=== PATIENT | male | born 2000 | race Caucasian/White ===

== ENCOUNTER 2022-08-31 14:36 | Inpatient (IN) | payer MEDICAID, SELFPAY ==
[2022-08-31 14:41] VITALS: BP 120/71; PULSE 96; RESP 14; TEMP 37.1; O2SAT 100; BMI 16.3
--- NOTE | 2022-08-31 15:41 | EDS_ITS ---
HPI History of Present Illness Chief Complaint: General Illness Narrative Narrative: History and physical is limited secondary to patient's past medical history of intellectual disability and ADHD. Reportedly, patient presents with his father and great aunt from radiology for abnormal swallowing study. His father relates history that he was seen by family practice because Mata's speech was progressively worsened over the last 4 months since his mother in February. He was eating less. There was an incident where Paula was eating, and choked, and it also takes him a long time to complete a meal. He has also been undergoing speech therapy. Was also noted and his medical chart that he has a lot of saliva production and his speech is unintelligible until he clears his mouth and throat. They deny that he has had any nausea or vomiting but over the last at least 6 months patient has significant weight loss. His father states he thought it was because the patient was grieving at the loss of his mother. Per RN, patient was brought from radiology because of an abnormal swallow study and that the patient needs an emergent G-tube. According to radiology they had spoken with Dr. Avila who is unable to see him in the office so they were told to present to the emergency department for surgical consultation. [facility] Medical History ADD (attention deficit disorder) Home Medications NK 08/31/22 [History Last Taken Unknown] Allergy/AdvReac Type Severity Reaction Status Date / Time No Known Allergies Allergy Verified 08/31/22 14:38 Family History Mother ALS (amyotrophic lateral sclerosis) Grandmother ALS (amyotrophic lateral sclerosis) Social History Smoking Status: Never smoker ROS ROS ED ROS Narrative Unable to obtain from patient secondary to IDD. Constitutional: No fever, no chills. Positive weight loss. HEENT: No sore throat. No neck pain. No loss of vision. No rhinorrhea. Cardiovascular: No chest pain. No palpitations. No pedal edema. Respiratory: No cough, no shortness of breath. Abdominal: No abdominal pain. No nausea. No vomiting. Genitourinary: No dysuria. No hematuria. Musculoskeletal: No myalgias. No arthralgias. Neurologic: No headaches. No dizziness. No lightheadedness. Skin: No rash. No change in color. Psychiatric: No depression. No anxiety. EXAM Physical Exam Const Vital Signs: 08/31/22 14:41 08/31/22 16:11 08/31/22 18:37 Temperature 98.8 F Temperature Source Temporal Pulse Rate 96 68 Respiratory Rate 14 15 Respiratory Effort Normal Non-Labored Respiratory Pattern Normal Blood Pressure 120/71 110/61 Blood Pressure Mean 87 77 Pulse Ox 100 99 Oxygen Delivery Method Room Air Room Air 08/31/22 20:00 Temperature Temperature Source Pulse Rate 68 Respiratory Rate 16 Respiratory Effort Respiratory Pattern Blood Pressure Blood Pressure Mean Pulse Ox 98 Oxygen Delivery Method Room Air MDM MDM MDM Narrative Medical decision making narrative: I reviewed his EMR. In further discussion with the patient's father and great aunt, he was at speech therapy today and he did have a swallowing study performed. They state that he has been aspirating, they were told that he is not to eat or drink anything and he needs to come to the emergency department as this PEG tube should be placed more emergently. CBC obtained which shows normal white count and normal hemoglobin of 16.4. There was a delay in CMP results as his specimen was hemolyzed twice. On the third attempt, it has returned and he has normal BUN and creatinine. Glucose of 79. He was made NPO. I discussed patient with Dr. Walter for observation for PEG tube placement tomorrow. Disposition is assigned to observation. Patient is in stable condition. Lab Data Attestation: I reviewed the patient's lab results. Labs: Laboratory Results - last 24 hr 08/31/22 08/31/22 08/31/22 16:24 16:24 17:23 WBC 8.3 RBC 5.57 Hgb 16.4 Hct 48.2 MCV 86.5 MCH 29.4 MCHC 34.0 RDW Std Deviation 40.8 RDW Coeff of [place] 13.1 Plt Count 373 MPV 11.5 Immature Gran % (Auto) 0.200 Neut % (Auto) 56.5 Lymph % (Auto) 32.1 [place] % (Auto) 9.0 Eos % (Auto) 1.8 Baso % (Auto) 0.4 Absolute Neuts (auto) 4.7 Absolute Lymphs (auto) 2.65 Nucleated RBC % 0 Sodium Cancelled Cancelled Potassium Cancelled Cancelled Chloride Cancelled Cancelled Carbon Dioxide Cancelled Cancelled Anion Gap Cancelled Cancelled BUN Cancelled Cancelled Creatinine Cancelled Cancelled Estim Creat Clear Calc Cancelled Cancelled Est GFR (MDRD) Af Amer Cancelled Cancelled Est GFR (MDRD) Non-Af Cancelled Cancelled BUN/Creatinine Ratio Cancelled Cancelled Glucose Cancelled Cancelled Calcium Cancelled Cancelled Total Bilirubin Cancelled Cancelled AST Cancelled Cancelled ALT Cancelled Cancelled Alkaline Phosphatase Cancelled Cancelled Total Protein Cancelled Cancelled Albumin Cancelled Cancelled Globulin Cancelled Cancelled Albumin/Globulin Ratio Cancelled Cancelled 08/31/22 19:20 WBC RBC Hgb Hct MCV MCH MCHC RDW Std Deviation RDW Coeff of [place] Plt Count MPV Immature Gran % (Auto) Neut % (Auto) Lymph % (Auto) [place] % (Auto) Eos % (Auto) Baso % (Auto) Absolute Neuts (auto) Absolute Lymphs (auto) Nucleated RBC % Sodium 138 Potassium 4.4 Chloride 101 Carbon Dioxide 30.0 Anion Gap 7 BUN 15 Creatinine 0.67 L Estim Creat Clear Calc 128.63 Est GFR (MDRD) Af Amer 193 Est GFR (MDRD) Non-Af 159 BUN/Creatinine Ratio 22.4 H Glucose 79 Calcium 9.7 Total Bilirubin 0.80 AST 13 L ALT 26 Alkaline Phosphatase 99 Total Protein 7.7 Albumin 3.8 Globulin 3.9 Albumin/Globulin Ratio 1.0 Discharge Plan Dx/Rx/DC Orders Clinical Impression: Dysphagia, Aspiration into airway, Adult failure to thrive Disposition Disposition: Acute Care Hospital [facility] Discharge Date/Time: 08/31/22 21:25
--- NOTE | 2022-08-31 16:17 | NURSING ---
DR DOMINIC YUNG
[2022-08-31 16:51] LABS: Absolute Lymphocyte Count 2.65 X10^3/uL (0.83-4.51); Absolute Neutrophil Count 4.7 X10^3/uL (2.0-7.7); Basophil# 0.03 X10^3/uL; Basophil% 0.4 % (0-1); Eosinophil# 0.15 X10^3/uL; Eosinophils% 1.8 % (0-5); Hematocrit 48.2 % (40-54); Hemoglobin 16.4 g/dL (13.0-16.5); Lymphocyte # 2.65 X10^3/ul (0.83-4.51); Lymphocyte % 32.1 % (19-41); Mean Corpuscular Hgb 29.4 pg (27.0-32.0); Mean Corpuscular Volume 86.5 fL (80-94); Mean Platelet Vol. 11.5 fl (6.2-12.0); Monocyte# 0.74 X10^3/uL; NRBC Flagged by Analyzer 0 % (0-5); Neutrophil # 4.66 X10^3/uL (2.7-7.7); Neutrophil % 56.5 % (47-70); Platelet Count 373 K/mm3 (150-450); RBC Distribution Width CV 13.1 % (11.6-14.6); RBC Distribution Width SD 40.8 fl (35.1-43.9); Red Blood Count 5.57 M/mm3 (4.6-6.2); White Blood Count 8.3 K/mm3 (4.4-11.0)
--- NOTE | 2022-08-31 17:04 | NURSING ---
CMP, GREEN TOP, NEEDS REDRAWN. PER LAB
[2022-08-31 18:37] VITALS: BP 110/61; PULSE 68; RESP 15; O2SAT 99
[2022-08-31 19:45] LABS: AST(SGOT) 13 U/L (15-37); Alanine Aminotransfer ALT/SGPT 26 U/L (16-61); Albumin, Serum 3.8 g/dL (3.2-5.0); Alkaline Phosphatase 99 U/L (45-117); Anion Gap 7 (5-15); BUN 15 mg/dL (7-18); BUN/Creat Ratio 22.4 RATIO (10-20); Calcium,Total 9.7 mg/dL (8.5-10.1); Chloride 101 mmol/L (98-107); Creatinine, Serum 0.67 mg/dL (0.70-1.30); EST Glomerular Filtration Rate 159 mL/min (>60); Est Glom Filt Rate - Afr Amer 193 mL/min (>60); Estimated Creatinine Clearance 128.63 ml/min; Globulin 3.9 g/dL (2.2-4.2); Glucose 79 mg/dL (74-106); Potassium 4.4 mmol/L (3.5-5.1); Protein, Total 7.7 g/dL (6.4-8.2); Sodium Level 138 mmol/L (136-145)
[2022-08-31 20:00] VITALS: PULSE 68; RESP 16; O2SAT 98
[2022-08-31 20:27] VITALS: BP 110/61; PULSE 68; RESP 15; TEMP 37.1; O2SAT 99
[2022-08-31 21:28] VITALS: BMI 15.7
[2022-08-31 21:42] VITALS: BP 118/79; PULSE 77; RESP 14; TEMP 36.4; O2SAT 100
[2022-08-31] MEDS: Lactated Ringers 1,000 ML 130 ML IV (22:05)
[2022-08-31] MEDS: 0.9% Saline Lock 10 ML Syringe IV (22:06)
--- NOTE | 2022-08-31 23:12 | NURSING ---
Dr Kern contacted due to no AM labs ordered for tomorrow. per no labs orders needed, due to being within normal limits today, physican wants consent placed on chart she will sign in AM, update provided that pt aunt is at bedside and states, she's a nurse she will be able to assist with pt care.
[2022-09-01] VITALS (14 sets, daily range): BP systolic 87–134; BP diastolic 52–77; PULSE 80–97; RESP 16–20; TEMP 36.2–36.7; O2SAT 92–100; BMI 15.7
--- NOTE | 2022-09-01 00:41 | NURSING ---
IV attempts by 2 RN unsuccessful 5 times. pt is refusing farther attempts at this time. Pt is noted to being very anxious and tense with IV placement.
[2022-09-01] MEDS: Lactated Ringers 1,000 ML 130 ML IV ×2 (05:01→11:38)
--- NOTE | 2022-09-01 08:38 | PCM.HP.STD ---
HPI - General General Date of Admission: 08/31/22 HPI Narrative SHONDA ESPARZA, is a 21 M who presented initially for a swallowing eval due to weight loss as patient's BMI is 15. Patient's mom about 6 months ago. Patient's swallow eval recommended a PEG tube as he was having aspiration. Patient does have past medical history for intellectual disability, he is currently accompanied by his great aunt who is a former nurse. Patient's aunt states that patient did not appear to be aspirating previous to the swallow eval. Patient's labs also showed normal albumin. However patient has been losing weight pretty much since about 6 months ago. Patient denies any abdominal pain. Patient has not even swallowing his saliva at some points. [facility] Medical History (Updated 09/01/22 @ 08:[address] Kimberly Montesinos MD) ADD (attention deficit disorder) Intellectual delay Home Medications NK 08/31/22 [History Last Taken Unknown] Allergy/AdvReac Type Severity Reaction Status Date / Time No Known Allergies Allergy Verified 08/31/22 14:38 Family History Mother ALS (amyotrophic lateral sclerosis) Grandmother ALS (amyotrophic lateral sclerosis) Social History Smoking Status: Never smoker ROS Review of Systems ROS Unobtainable: due to mental condition Gastrointestinal Gastrointestinal: Denies abdominal pain Vital Signs Vital Signs Vital Signs: 08/31/22 14:41 08/31/22 16:11 08/31/22 18:37 Temperature 98.8 F Temperature Source Temporal Pulse Rate 96 68 Pulse Strength Respiratory Rate 14 15 Respiratory Effort Normal Non-Labored Respiratory Depth Respiratory Pattern Normal Blood Pressure 120/71 110/61 Blood Pressure Mean 87 77 Blood Pressure Source Blood Pressure Position Blood Pressure Location Pulse Ox 100 99 Oxygen Delivery Method Room Air Room Air 08/31/22 20:27 08/31/22 20:00 08/31/22 21:42 Temperature 98.8 F 97.6 F L Temperature Source Temporal Oral Pulse Rate 68 68 77 Pulse Strength Respiratory Rate 15 16 14 Respiratory Effort Respiratory Depth Respiratory Pattern Blood Pressure 110/61 118/79 Blood Pressure Mean 77 92 Blood Pressure Source Monitor Blood Pressure Position Semi-Fowlers Blood Pressure Location Right Arm Pulse Ox 99 98 100 Oxygen Delivery Method Room Air Room Air Room Air 08/31/22 22:00 08/31/22 22:00 08/31/22 21:42 Temperature 97.6 F L Temperature Source Oral Pulse Rate 77 Pulse Strength Normal (2+) Respiratory Rate 14 Respiratory Effort Normal Respiratory Depth Normal Respiratory Pattern Normal Blood Pressure 118/79 Blood Pressure Mean 92 Blood Pressure Source Blood Pressure Position Blood Pressure Location Pulse Ox 100 Oxygen Delivery Method Room Air Room Air 09/01/22 03:35 09/01/22 03:38 09/01/22 06:30 Temperature 98.0 F 97.4 F L Temperature Source Axillary Axillary Pulse Rate 90 91 Pulse Strength Respiratory Rate 18 18 Respiratory Effort Normal Respiratory Depth Normal Respiratory Pattern Normal Blood Pressure 134/77 H 116/77 Blood Pressure Mean 96 90 Blood Pressure Source Monitor Monitor Blood Pressure Position Supine Supine Blood Pressure Location Right Arm Right Arm Pulse Ox 96 100 Oxygen Delivery Method Room Air Room Air Room Air 09/01/22 02:34 Temperature 97.4 F L Temperature Source Axillary Pulse Rate 91 Pulse Strength Respiratory Rate 18 Respiratory Effort Respiratory Depth Respiratory Pattern Blood Pressure 116/77 Blood Pressure Mean 90 Blood Pressure Source Monitor Blood Pressure Position Supine Blood Pressure Location Right Arm Pulse Ox 100 Oxygen Delivery Method Room Air Weight Weight: 112 lb 14.027 oz Body Mass Index (BMI) 15.7 Physical Exam Const alert, oriented x3 and no apparent distress Nutritional Appearance: underweight HEENT normocephalic and head/scalp atraumatic Resp normal respiratory effort Cardio regular rate GI soft to palpation and non-tender; Negative for non-distended Palpation: Negative for guarding Extremity no clubbing, cyanosis or edema Results Lab / Micro Data Result Diagrams: 08/31/22 16:24 08/31/22 19:20 Labs: Laboratory Results - last 24 hr 08/31/22 16:24: WBC 8.3, RBC 5.57, Hgb 16.4, Hct 48.2, MCV 86.5, MCH 29.4, MCHC 34.0, RDW Std Deviation 40.8, RDW Coeff of [place] 13.1, Plt Count 373, MPV 11.5, Immature Gran % (Auto) 0.200, Neut % (Auto) 56.5, Lymph % (Auto) 32.1, [place] % (Auto) 9.0, Eos % (Auto) 1.8, Baso % (Auto) 0.4, Absolute Neuts (auto) 4.7, Absolute Lymphs (auto) 2.65, Nucleated RBC % 0 08/31/22 16:24: Sodium Cancelled, Potassium Cancelled, Chloride Cancelled, Carbon Dioxide Cancelled, Anion Gap Cancelled, BUN Cancelled, Creatinine Cancelled, Estim Creat Clear Calc Cancelled, Est GFR (MDRD) Af Amer Cancelled, Est GFR (MDRD) Non-Af Cancelled, BUN/Creatinine Ratio Cancelled, Glucose Cancelled, Calcium Cancelled, Total Bilirubin Cancelled, AST Cancelled, ALT Cancelled, Alkaline Phosphatase Cancelled, Total Protein Cancelled, Albumin Cancelled, Globulin Cancelled, Albumin/Globulin Ratio Cancelled 08/31/22 17:23: Sodium Cancelled, Potassium Cancelled, Chloride Cancelled, Carbon Dioxide Cancelled, Anion Gap Cancelled, BUN Cancelled, Creatinine Cancelled, Estim Creat Clear Calc Cancelled, Est GFR (MDRD) Af Amer Cancelled, Est GFR (MDRD) Non-Af Cancelled, BUN/Creatinine Ratio Cancelled, Glucose Cancelled, Calcium Cancelled, Total Bilirubin Cancelled, AST Cancelled, ALT Cancelled, Alkaline Phosphatase Cancelled, Total Protein Cancelled, Albumin Cancelled, Globulin Cancelled, Albumin/Globulin Ratio Cancelled 08/31/22 19:20: Sodium 138, Potassium 4.4, Chloride 101, Carbon Dioxide 30.0, Anion Gap 7, BUN 15, Creatinine 0.67 L, Estim Creat Clear Calc 128.63, Est GFR (MDRD) Af Amer 193, Est GFR (MDRD) Non-Af 159, BUN/Creatinine Ratio 22.4 H, Glucose 79, Calcium 9.7, Total Bilirubin 0.80, AST 13 L, ALT 26, Alkaline Phosphatase 99, Total Protein 7.7, Albumin 3.8, Globulin 3.9, Albumin/Globulin Ratio 1.0 Assessment & Plan Assessment/Plan (1) Dysphagia: (2) Aspiration into airway: (3) Adult failure to thrive: (4) Body mass index less than 16.5: PLAN: Plan Currently n.p.o. with IV fluids. Nutritional help with patient's tube feeds. I have discussed the above with the patient and his great aunt who is in the room. I have offered the patient esophagogastroduodenoscopy with PEG placement. I have explained the risks/benefits of the procedure and described the procedure. I have discussed the risks with the patient, including but not limited to: infection, bleeding, perforation of the GI tract requiring emergency surgery, inability to complete the procedure, injury to any internal organs, complications of anesthesia, etc. - the patient understands and agrees to proceed. Also discussed the importance of keeping the tube in place for at least 2 weeks to develop a good track as it could be emergency surgery if unable to replace if he gets pulled out. I have answered all the patient's/family's questions to the patient's/family's satisfaction and the family/patient has no further questions. Kimberly Montesinos M.D. Pager: [phone] [facility] [address] [place] [address] [address] [place] [address] Office: [phone]
--- NOTE | 2022-09-01 10:21 | CASEMGMT ---
RN CM in to discuss discharge needs with parents at bedside. RN CM explained process for setting up tube feeds. Parents agreeable to [facility] for tube feeds. RN CM updated insurance instructor Danae regarding DME choice. CM will continue to follow this patient and plan for a safe discharge.
--- NOTE | 2022-09-01 13:45 | IMM_PTH ---
PATIENT: SHONDA ESPARZA LOC: [facility]3 U#:[id number] AGE/SX: 21/M ROOM: [facility] [place] RE09/02/[address]: Dr. Kimberly Montesinos MD : 2000 BED: 1 DIS: 09/04/2022 SPEC #: [id number] RECD: 09/02/22 13:59 STATUS: AVINASH REQ #: [id number] JUNIE: 09/01/22 13:[address]: Kimberly Montesinos DEPT: IMMUNOHISTOCHEMISTRY RECD BY: Seema Ny ENTERED: 09/02/22 14:00 SP TYPE: IMMUNO OTHR DR: Dr. Jesusita Akers, DO Tissues: Stomach, NOS Procedures: H Pylori (initial) PHYSICIAN & [place] [id number] SPECIMEN INFORMATION: Tissue Source: Antrum biopsy Clinical Info: Dysphagia, aspiration into airway Specimen Number: [id number] CPT code: 96345 METHODOLOGY: Deparaffinized sections of prefer/formalin-fixed tissue or PAP/DQ stained slides are incubated with monoclonal/polyclonal antibodies/oligonucleotide probes. Localization is made via biotin free immunoperoxidase method. Appropriate controls are performed and reacted as expected. Results on target cell population are indicated in the following table: RESULTS: ANTIBODY / CLONE RESULT H Pylori (polyclonal) negative These tests were developed and their performance characteristics determined by [facility]. They may not have been cleared or approved by the U.S. Food and Drug Administration. The FDA has determined that such clearance or approval is not necessary. The above immunohistochemical/dualISH markers are ordered and reviewed by the Pathologist. INTERPRETATION: Antrum, biopsy: Negative for Helicobacter pylori organisms. SJ:epdro 09/03/2022
--- NOTE | 2022-09-01 13:45 | EGD_PTH ---
PATIENT: SHONDA ESPARZA LOC: MS3 U#:[id number] AGE/SX: 21/M ROOM: FL310 RE09/02/[address]: Dr. Kimberly Montesinos MD : 2000 BED: 1 DIS: 09/04/2022 SPEC #: [id number] RECD: 09/01/22 14:39 STATUS: AVINASH RENiki #: [id number] JUNIE: 09/01/22 13:[address]: Kimberly Montesinos DEPT: SURGICAL PATHOLOGY RECD BY: Giana Simmons ENTERED: 09/02/22 12:27 SP TYPE: EGD BIOPSY OT DR: Dr. Jesusita Akers, DO Tissues: Gastric mucous membrane Procedures: Surgery Specimen Level IV HEADER OPERATION: EGD ([facility]), PEG tube PRE-OP DIAGNOSIS: Dysphagia, aspiration into airway TISSUE SUBMITTED: Antrum biopsy for H. pylori and histology MICROSCOPIC DIAGNOSIS Antrum, biopsy: Mild gastritis. See microscopic description and comment. SJ:pedro 09/03/2022 COMMENT The results of immunohistochemistry for Helicobacter pylori will be reported separately ([id number]). MICROSCOPIC DESCRIPTION Slides are reviewed. The specimen shows fragments of gastric mucosa with chronic inflammatory cell infiltrates in the lamina propria consisting of lymphocytes and plasma cells, consistent with mild chronic gastritis. GROSS DESCRIPTION Received in fixative is one container labeled with the patient's name and designated antrum biopsy. The specimen consists of one irregular fragment of light segovia soft tissue that measures 0.3 x 0.3 x 0.1 cm. The specimen is totally submitted in one cassette. / TYREE:pedro 09/02/2022 TC:3 CPT: 74392
[2022-09-01] MEDS: Cefazolin 2 GM in 0.9% Normal Saline 100 ML IV (13:50)
--- NOTE | 2022-09-01 13:50 | NS ---
Faxed enteral nutrition recommendations to [facility] (fax [phone]). Telephone call ([phone]) from [facility] apprenticeship training representative, [facility] will reach out to PCP Dr. Akers for signatures on enteral order and to complete Certificate of Medical Necessity. Kayden Pacheco MS, RDN, LD
--- NOTE | 2022-09-01 14:16 | OP.CCLET_ITS ---
09/01/2022 Jesusita Akers Re : Upper GI endoscopy procedure for Mata Portillo Dear Delphine This procedure was performed on Thursday, September 01, 2022. My impressions and recommendations are as follows: Impressions : - Z-line variable, 40 cm from the incisors. - Erythematous mucosa in the antrum. Biopsied. - Normal examined duodenum. - An externally removable PEG placement was successfully completed. Recommendations : - Please follow the post-PEG recommendations including: change dressing once per day, may use PEG today for meds and water and clean site with soap and water daily and dry thoroughly. - Await pathology results. - Use Protonix (pantoprazole) 40 mg PO daily. - Continue present medications. My findings are described in the full procedure note, which is enclosed. If I can be of further assistance, please feel free to contact me at Doctor phone number(s): , Work: . Sincerely, MD Kimberly Ojeda MD 09/01/2022 2:16:18 PM This report has been signed electronically.
--- NOTE | 2022-09-01 14:16 | OP.EGD_ITS ---
Patient Name: Mata Portillo Procedure Date: 09/01/2022 1:31 PM Date of : 2000 Age: 21 Procedure: Upper GI endoscopy Indications: Place PEG due to dysphagia Providers: Kimberly Montesinos MD Medicines: Monitored Anesthesia Care Patient Profile: This is a 21 year old male. Complications: No immediate complications. Procedure: Pre-Anesthesia Assessment: - Prior to the procedure, a History and Physical was performed, and patient medications and allergies were reviewed. The patient's tolerance of previous anesthesia was also reviewed. The risks and benefits of the procedure and the sedation options and risks were discussed with the patient. All questions were answered, and informed consent was obtained. Prior Anticoagulants: The patient has taken no previous anticoagulant or antiplatelet agents. ASA Grade Assessment: Per anesthesia. After reviewing the risks and benefits, the patient was deemed in satisfactory condition to undergo the procedure. After obtaining informed consent, the endoscope was passed under direct vision. Throughout the procedure, the patient's blood pressure, pulse, and oxygen saturations were monitored continuously. The gastroscope was introduced through the mouth, and advanced to the second part of duodenum. The upper GI endoscopy was accomplished without difficulty. The patient tolerated the procedure well. Scope In: 1:58:34 PM Scope Out: 2:09:41 PM Total Procedure Duration Time 0 hours 11 minutes 7 seconds Findings: The Z-line was variable and was found 40 cm from the incisors. Diffuse moderately erythematous mucosa without bleeding was found in the gastric antrum. Biopsies were taken with a cold forceps for histology. Biopsies were taken with a cold forceps for Helicobacter pylori cultures. The examined duodenum was normal. The patient was placed in the supine position for PEG placement. The stomach was insufflated to appose gastric and abdominal mca. A site was located in the body of the stomach with excellent transillumination for placement. The abdominal wall was marked and prepped in a sterile manner. The area was anesthetized with 4 mL of 1% lidocaine. The trocar needle was introduced through the abdominal wall and into the stomach under direct endoscopic view. A snare was introduced through the endoscope and opened in the gastric lumen. The guide wire was passed through the trocar and into the open snare. The snare was closed around the guide wire. The endoscope and snare were removed, pulling the wire out through the mouth. A skin incision was made at the site of needle insertion. The externally removable 20 Fr EndoVive Safety gastrostomy tube was lubricated. The G-tube was tied to the guide wire and pulled through the mouth and into the stomach. The trocar needle was removed, and the gastrostomy tube was pulled out from the stomach through the skin. The external bumper was attached to the gastrostomy tube, and the tube was cut to remove the guide wire. The final position of the gastrostomy tube was confirmed by relook endoscopy, and skin marking noted to be 3 cm at the external bumper. The final tension and compression of the abdominal wall by the PEG tube and external bumper were checked and revealed that the bumper was loose and lightly touching the skin. The feeding tube was capped, and the tube site cleaned and dressed. Impression: - Z-line variable, 40 cm from the incisors. - Erythematous mucosa in the antrum. Biopsied. - Normal examined duodenum. - An externally removable PEG placement was successfully completed. Recommendation: - Please follow the post-PEG recommendations including: change dressing once per day, may use PEG today for meds and water and clean site with soap and water daily and dry thoroughly. - Await pathology results. - Use Protonix (pantoprazole) 40 mg PO daily. - Continue present medications. Procedure Code(s): --- Professional --- 90907, Esophagogastroduodenoscopy, flexible, transoral; with directed placement of percutaneous gastrostomy tube 82578, Esophagogastroduodenoscopy, flexible, transoral; with biopsy, single or multiple Diagnosis Code(s): --- Professional --- K22.8, Other specified diseases of esophagus K31.89, Other diseases of stomach and duodenum R13.10, Dysphagia, unspecified Z43.1, Encounter for attention to gastrostomy CPT copyright 2017 [employer]. All rights reserved. The codes documented in this report are preliminary and upon professional fee coder review may be revised to meet current compliance requirements. MD Kimberly Ojeda MD 09/01/2022 2:16:18 PM This report has been signed electronically. Number of Addenda: 0 Note Initiated On: 09/01/2022 1:31 PM
--- NOTE | 2022-09-01 14:37 | NS ---
Discussed w/ Dr. Montesinos on phone- will start enteral nutrition today at 1/2 rate, given via bolus slowly. Will enter orders. Enteral nutrition to be advanced tomorrow morning if tolerated after RDN assessment. Kayden Pacheco MS, RDN, LD
[2022-09-01] MEDS: Lactated Ringers 1,000 ML 100 ML IV (18:36)
[2022-09-01] MEDS: Ondansetron 4 MG/2 ML Vial 8 MG IV (20:54)
[2022-09-01] MEDS: Morphine 2 MG/ML Syringe IV (20:55)
[2022-09-01] MEDS: 0.9% Saline Lock 10 ML Syringe IV (20:55)
[2022-09-01] MEDS: Jevity 1.5. 1,000 ML Bottle 125 ML GT (20:59)
[2022-09-02] VITALS (10 sets, daily range): BP systolic 112–132; BP diastolic 68–79; PULSE 95–118; RESP 18–20; TEMP 36.4–37.9; O2SAT 93–99
[2022-09-02 05:04] LABS: ALB/GLOB Ratio 0.9 RATIO (0.9-2.4); AST(SGOT) 8 U/L (15-37); Alanine Aminotransfer ALT/SGPT 22 U/L (16-61); Albumin, Serum 3.5 g/dL (3.2-5.0); Alkaline Phosphatase 90 U/L (45-117); Anion Gap 7 (5-15); BUN 9 mg/dL (7-18); BUN/Creat Ratio 12.4 RATIO (10-20); Calcium,Total 9.3 mg/dL (8.5-10.1); Chloride 98 mmol/L (98-107); Creatinine, Serum 0.72 mg/dL (0.70-1.30); EST Glomerular Filtration Rate 145 mL/min (>60); Est Glom Filt Rate - Afr Amer 176 mL/min (>60); Estimated Creatinine Clearance 118.52 ml/min; Globulin 3.9 g/dL (2.2-4.2); Glucose 140 mg/dL (74-106); Magnesium 1.8 mg/dL (1.6-2.6); Phosphorus 3.1 mg/dL (2.5-4.9); Protein, Total 7.4 g/dL (6.4-8.2); Sodium Level 133 mmol/L (136-145)
[2022-09-02] MEDS: 0.9% Saline Lock 10 ML Syringe IV (06:03)
[2022-09-02] MEDS: Lactated Ringers 1,000 ML 100 ML IV ×2 (06:03→18:14)
[2022-09-02] MEDS: Ondansetron 4 MG/2 ML Vial 8 MG IV (06:03)
[2022-09-02] MEDS: Morphine 2 MG/ML Syringe IV (06:03)
--- NOTE | 2022-09-02 06:16 | NURSING ---
pt noted with 150 ml olive colored residual. tube feeding held at this time.
--- NOTE | 2022-09-02 08:41 | PN.SURG_ITS ---
Subjective Subjective Patient was tolerating tube feeds last night. Denies any nausea or vomiting. Per patient's dad he seems more comfortable and less issues even with swallowing saliva. Patient was started on Protonix IV due to his gastritis seen during EGD. Objective Data Objective Data Vital Signs: Vital Signs Temp Pulse Resp BP Pulse Ox O2 Del Method O2 Flow Rate 97.8 F 95 18 132/68 H 95 Room Air 2 09/02/22 01:59 09/02/22 01:59 09/02/22 01:59 09/02/22 01:59 09/02/22 01:59 09/02/22 04:48 09/02/22 01:59 Oxygen Flow Rate (L/min) 2 Oxygen Delivery Method Room Air Weight: 113 lb 12.136 oz Body Mass Index (BMI) 15.7 Intake & Output: Intake and Output for Last 24 Hours 08/31/22 09/01/22 09/02/22 23:59 23:59 23:59 Intake Total 2803.17 / 2803.17 1000 / 1000 Output Total 550 / 550 Balance 2803.17 / 2603.17 450 / 450 Medical Nutrition Assessment Dietitian: Malnutrition Criteria Met Start: 09/01/22 11: 34 Freq: Status: Active Protocol: Document 09/01/22 11:34 (Rec: 09/01/22 11:34 [id number]) Nutrition Malnutrition Evidence of Malnutrition Exists Yes Malnutrition (severe): Chronic Evidenced By Suboptimal Energy Intake ( Severe),Weight Loss (Severe), Physical Changes (Severe) Clinical Problem Chronic Disease or Condition Related Malnutrition Etiology chronic, severe malnutrition r /t swallowing difficulty, inadequate oral intake Signs/Symptoms as evidenced by unintentional wt loss of 87.1#/44% < 1 year; estimated PO intake meeting < 50% of estimated energy needs > 3 months; severe muscle wasting/fat loss in orbital, temporal, clavicle, and acromion areas; BMI 15.7 Status Active Problem Recommendation Dietitian Recommendations/Changes Via PEG- Jevity 1.5 250mL bolus 5x/day w/ 100mL H2O flush before and after each bolus to provide 1875 calories , 80 g protein, and 1950mL total fluid/day. Would start w / 125mL for first feeding, increase to 175mL for second feeding as tolerated and then advance to goal for third feeding as tolerated. Lab / Micro Data Result Diagrams: 08/31/22 16:24 09/02/22 04:07 Labs: Laboratory Results - last 24 hr 09/02/22 04:07: Sodium 133 L, Potassium 4.0, Chloride 98, Carbon Dioxide 28.0, Anion Gap 7, BUN 9, Creatinine 0.72, Estim Creat Clear Calc 118.52, Est GFR (MDRD) Af Amer 176, Est GFR (MDRD) Non-Af 145, BUN/Creatinine Ratio 12.4, Glucose 140 H, Calcium 9.3, Phosphorus 3.1, Magnesium 1.8, Total Bilirubin 1.30 H, AST 8 L, ALT 22, Alkaline Phosphatase 90, Total Protein 7.4, Albumin 3.5, Globulin 3.9, Albumin/Globulin Ratio 0.9 Physical Exam Const no apparent distress Resp normal respiratory effort Cardio regular rate GI GI Narrative: PEG in place site clean dry and intact, minimally tender near PEG tube, soft, no peritoneal signs nondistended Assessment & Plan Assessment/Plan (1) Dysphagia: (2) Aspiration into airway: (3) Adult failure to thrive: (4) Body mass index less than 16.5: PLAN: Plan Patient has been tolerating tube feeds. Speech is also been asked for possible repeat eval however due to his severe dysphagia during his last one did not feel is appropriate to have 1 done this soon. Would recommend patient get a neurology outpatient follow-up as his mom about 6 months ago and question if she had ALS. Speech would recommend oral strengthening if patient is found to not have ALS per neurology. And then would plan a repeat swallow at that time as an outpatient. Gastritis?patient currently on IV Protonix will change to Nexium as are pharmacy carries that in the granules 40 mg via PEG daily. This could also patient's feeling of choking/dysphagia if he is not found to have early ALS. This was discussed with patient's father and great aunt who is a former nurse. He had no further questions Kimberly Montesinos M.D. Pager: [phone] [facility] [address] [place] [address], [facility], [address] [place] [id number] Office: [phone]
[2022-09-02] MEDS: Jevity 1.5. 1,000 ML Bottle 125 ML GT (10:37)
--- NOTE | 2022-09-02 11:25 | CASEMGMT ---
Addendum entered by Nelson Jara 09/02/22 13:33: Clarification: per ST, it is okay for pt to have OP ST for speech, just not for swallowing/dysphagia. Pt's father made aware. Addendum entered by Nelson Jara 09/02/22 11:49: Pt's father is in room now. ST @ bedside. Father made aware neuro c/s is needed prior to further OP ST. Father inquiring what a neurologist does and this was explained by Sanjiv PERSON, who is also @ bedside. Father voices understanding and denies having further discharge planning needs/concerns. Original Note: RAZA CANAS NOTE: Per Danae, progressive die maker, she has been working w/pt and family, all home TF's have been set up through [employer] and no additional information is needed. RAZA CANAS to room. Pt's father @ bedside. He declines wanting HHC in addition to [employer] providing education. He states pt was going to [facility] prior to admission and he would like to resume this. He denies other home-going/discharge planning needs. Per Iva BRAVO, a neuro consult is recommended prior to further ST to ensure there are no contraindications and to ensure pt is appropriate for ST. RAZA CANAS to room to inform pt's father of this. He is not in room at this time. Call to [employer] and spoke w/Brittany. She was made aware of the above and states she will relay this information to the Speech Therapist. Dr Montesinos aware of recommendations and states will discharge w/instructions/referral for OP neuro. Kranthi CHÁVEZ RN, CM
--- NOTE | 2022-09-02 12:52 | PCM.DC.SUM ---
Providers Date of Admission: 08/31/22 Date of Discharge: 09/02/22 Primary Care Physician: Dr. Jesusita Akers, DO speech/nutrition Reason For Visit: DYSPHAGIA; MALNUTRITION Diagnosis Discharge Diagnosis (1) Dysphagia: Status: Acute Code(s): R13.10 - Dysphagia, unspecified (2) Aspiration into airway: Status: Acute Code(s): T17.908A - Unspecified foreign body in respiratory tract, part unspecified causing other injury, initial encounter (3) Adult failure to thrive: Status: Acute Code(s): R62.7 - Adult failure to thrive (4) Body mass index less than 16.5: Status: Acute Code(s): Z68.1 - Body mass index [BMI] 19.9 or less, adult Plan Patient has been tolerating tube feeds. Speech is also been asked for possible repeat eval; however due to his severe dysphagia during his last one did not feel is appropriate to have 1 done this soon. Speech would recommend patient get a neurology outpatient follow-up as his mom about 6 months ago and question if she had ALS- she did have FH in her mom and Uncle. Speech would recommend oral strengthening if patient is found to not have ALS per neurology. And then would plan a repeat swallow at that time as an outpatient. Gastritis?patient currently on IV Protonix will change to Nexium as are pharmacy carries that in the granules 40 mg via PEG daily. This could also patient's feeling of choking/dysphagia if he is not found to have early ALS. This was discussed with patient's father and great aunt-Abby, who is a former nurse. They had no further questions Kimberly Montesinos M.D. Pager: [phone] [facility] [address] [place] [address], [facility], [address] [place] [id number] Office: [phone] Medications at Discharge Home Medications esomeprazole magnesium 40 mg granules delayed release for susp (Nexium Packet) 40 mg PO DAILY #60 ea 09/02/22 hydrocodone 10 mg-acetaminophen 300 mg/15 mL oral solution (Lortab Elixir) 7.5 - 15 ml PO Q6H PRN pain 3 days #30 mL 09/02/22 Hospital Course Operations None Procedures Peg tube placement Summary of Care Provided Minutes Spent on Discharge: 30 Hospital Course: Patient was sent to the ER Tuesday after having speech evaluation which showed aspiration recommended n.p.o. Patient was admitted for IV hydration and PEG tube placement. Patient underwent EGD/PEG tube placement no issues. Patient was able to start on tube feeds last night and has been tolerating last night and today. Discussed with speech and they would recommend neurology consult as patient's mom has a family history of ALS to rule that out for the patient prior to doing any strengthening exercises. If that has been ruled out with plan to do strengthening exercises and then plan to repeat the swallow so still would remain n.p.o. by mouth. Patient is getting tube feeds per nutrition recommendation. This has been set up with the PCP for ordering. Patient did have some gastritis seen on EGD and biopsy was taken as well as patient was started on IV Protonix and will be given Nexium granules via PEG tube 40 mg daily as this is what our pharmacy had in stock for PEG tubes. This is discussed with the patient's father and patient's great aunt and they had no further question this time. Physical Exam Const no apparent distress Resp normal respiratory effort Cardio regular rate GI GI Narrative: PEG in place site clean dry and intact, minimally tender near PEG tube, soft, no peritoneal signs nondistended Medical Records Data Medical Nutrition Assessment Dietitian: Malnutrition Criteria Met Start: 09/01/22 11:34 Freq: Status: Active Protocol: Document 09/01/22 11:34 (Rec: 09/01/22 11:34 [id number]) Nutrition Malnutrition Evidence of Malnutrition Exists Yes Malnutrition (severe): Chronic Evidenced By Suboptimal Energy Intake ( Severe),Weight Loss (Severe), Physical Changes (Severe) Clinical Problem Chronic Disease or Condition Related Malnutrition Etiology chronic, severe malnutrition r /t swallowing difficulty, inadequate oral intake Signs/Symptoms as evidenced by unintentional wt loss of 87.1#/44% < 1 year; estimated PO intake meeting < 50% of estimated energy needs > 3 months; severe muscle wasting/fat loss in orbital, temporal, clavicle, and acromion areas; BMI 15.7 Status Active Problem Recommendation Dietitian Recommendations/Changes Via PEG- Jevity 1.5 250mL bolus 5x/day w/ 100mL H2O flush before and after each bolus to provide 1875 calories , 80 g protein, and 1950mL total fluid/day. Would start w / 125mL for first feeding, increase to 175mL for second feeding as tolerated and then advance to goal for third feeding as tolerated. Weight / BMI Weight Weight: 113 lb 12.136 oz Body Mass Index (BMI) 15.7 ABG / Lab / Microbiology Data Result Diagrams: 08/31/22 16:24 09/02/22 04:07 Laboratory: Laboratory Results - last 24 hr 09/02/22 04:07: Sodium 133 L, Potassium 4.0, Chloride 98, Carbon Dioxide 28.0, Anion Gap 7, BUN 9, Creatinine 0.72, Estim Creat Clear Calc 118.52, Est GFR (MDRD) Af Amer 176, Est GFR (MDRD) Non-Af 145, BUN/Creatinine Ratio 12.4, Glucose 140 H, Calcium 9.3, Phosphorus 3.1, Magnesium 1.8, Total Bilirubin 1.30 H, AST 8 L, ALT 22, Alkaline Phosphatase 90, Total Protein 7.4, Albumin 3.5, Globulin 3.9, Albumin/Globulin Ratio 0.9 D/C Instructions Discharge Diet: - (N.p.o. per nutrition, tube feeds per nutrition recommendation) Discharge Activity: May Shower (Careful that PEG tube is not pulled especially the first 2 weeks.) Lifting Restrictions: none Additional Activity Instructions: Wear abdominal binder to make sure that the PEG tube is not inadvertently pulled. Call your doctor if your incision/area has: Continuous Slow Oozing, Sudden Increased Bleeding and Increased Pain/ Swelling Change Dressing in: 1 day Meaningful Use Info Meaningful Use Diagnoses (Choose all that apply): None applicable Discharge Plan Admission Admit Date/Time: 08/31/22 20:22 Attending Provider: Kimberly Montesinos Primary Care Provider: Jesusita Akers Discharge Orders/Prescriptions Prescriptions: New esomeprazole magnesium [Nexium Packet] [address] for susp in packet 40 mg PO DAILY Qty: 60 2RF Lortab Elixir 10-300 mg/15 mL solution 7.5 - 15 ml PO Q6H PRN (Reason: pain) 3 Days Qty: 30 0RF Referrals / Follow Up: Jason Jauregui MD [Non-Staff] - Ruiz Moore MD [Non-Staff -Ordering Privileges] - Within 2 Weeks Radha Ochoa NP, BASKET GRADER-C [Non-Staff] - 09/17/22 2:00 pm Disposition Disposition (needs filled in before D/C Order can be placed): Home, Self Care Charges/Coding Visit Charges Inpatient E&M: 25660 Disch Hosp
[2022-09-02] MEDS: Jevity 1.5. 1,000 ML Bottle 250 ML GT ×3 (14:06→21:27)
--- NOTE | 2022-09-02 15:31 | NS ---
Telephone call to Janeen at [facility] to check status of home enteral nutrition supplies. Order was sent to PCP Dr. Akers for signature, signed orders have not yet been returned to [facility]. [facility] will send courtesy supplies for pt once pt is home until enteral script is signed and returned. Family should call [facility] once they are home at option 1, ask for Janeen to further check on status of enteral supplies. Janeen also suggested family call PCP again if possible to inquire about status of signed orders. Home tube feeds: via PEG Jevity 1.5 (or Isosource 1.5): 250mL bolus 5x/day w/ 100mL H2O flush before and after each bolus to provide 1875 calories, 80 g protein, and 1950mL total fluid/day. Kayden Pacheco MS, RDN, LD
[2022-09-02] MEDS: HYDROCODONE/APAP 7.5-325/15ML 15 ML UDC PO (17:30)
[2022-09-02 17:38] LABS: Absolute Lymphocyte Count 1.34 X10^3/uL (0.83-4.51); Absolute Neutrophil Count 16.7 X10^3/uL (2.0-7.7); Basophil# 0.07 X10^3/uL; Basophil% 0.4 % (0-1); Eosinophil# 0.02 X10^3/uL; Eosinophils% 0.1 % (0-5); Hematocrit 43.2 % (40-54); Hemoglobin 14.6 g/dL (13.0-16.5); Lymphocyte # 1.34 X10^3/ul (0.83-4.51); Lymphocyte % 6.9 % (19-41); Mean Corp Hgb Conc 33.8 g/dL (32-36); Mean Corpuscular Hgb 29.2 pg (27.0-32.0); Mean Corpuscular Volume 86.4 fL (80-94); Mean Platelet Vol. 11.7 fl (6.2-12.0); Monocyte# 1.12 X10^3/uL; Monocyte% 5.8 % (0-10); NRBC Flagged by Analyzer 0 % (0-5); Neutrophil # 16.74 X10^3/uL (2.7-7.7); Neutrophil % 86.2 % (47-70); Platelet Count 344 K/mm3 (150-450); RBC Distribution Width CV 12.6 % (11.6-14.6); RBC Distribution Width SD 39.2 fl (35.1-43.9); White Blood Count 19.4 K/mm3 (4.4-11.0)
--- NOTE | 2022-09-02 17:40 | RAD_ITS ---
INDICATION: Cough/Fever EXAMINATION/TECHNIQUE: X-RAY - XR Chest 2 Views COMPARISON: No previous relevant examinations available for comparison.. FINDINGS: LIFE-SUPPORT AND LINES: 1. None HEART AND VESSELS: The cardiac silhouette, pulmonary vasculature have normal appearance. No evidence of congestive failure. LUNGS AND PLEURAL SPACES: Retrocardiac LEFT lower lobe infiltrate. Remaining lung zones are clear. No pulmonary mass is noted. MEDIASTINUM AND HILAR REGIONS: No masses adenopathy noted. No areas of calcification. Visualized upper airway is normal in position. BONY ELEMENTS: No acute bony changes noted. RAD/Chest PA and Lateral IMPRESSION: 1. LEFT lower lobe infiltrate/pneumonia. 2. Remaining lung zones are clear. 3. No congestive failure. Electronically Signed: Vasyl Patterson MD at 18:13 EST ,
--- NOTE | 2022-09-02 18:29 | CON.PCM.HO_ITS ---
Assessment & Plan Assessment/Plan (1) Fever: QUALIFIERS: Fever type: unspecified Qualified Code(s): R50.9 - Fever, unspecified PLAN: Etiology unclear at this time. Could be aspiration pneumonia given his dysphagia but also could be viral but also atelectasis. We will check the patient for COVID, RSV and influenza. Check urinalysis and urine culture. Check chest x-ray Based on the results of the studies, may consider additional work-up. (2) Severe protein-calorie malnutrition: PLAN: On Jevity tube feeds (3) Dysphagia: QUALIFIERS: Dysphagia type: unspecified Qualified Code(s): R13.10 - Dysphagia, unspecified PLAN: Status post PEG tube placement Management per general surgery If the above work-up comes back unremarkable and patient still continues to have abdominal pain, it may be advisable to further evaluate his abdomen with a CAT scan. I do not feel that is necessary at this point however. PLAN: Plan ADHD and intellectual limitations. Complicates care and recovery. VTE prophylaxis with SCDs. Thank you for the consult. The hospital service will continue to follow along during this patient's hospitalization. HPI Consult Data Date of Consult: 09/02/22 HPI Narrative Reason for Consultation: Consult requested for fever. HPI Narrative: SHONDA ESPARZA, is a 21 M who presents with dysphagia and failed swallow evaluation. Patient underwent a PEG tube placement on the . Apparently patient has been having issues since the passing of his mother 6 months ago and has not been even managing his secretions properly. When I go see the patient history is rather limited due to what may be intellectual limitations but also reluctance to volunteer additional information. What I was able to gather is patient's denying any fever chills or any shortness of breath though he is currently on oxygen. He expressed desire to go home. [facility] Medical History ADD (attention deficit disorder) Intellectual delay Home Medications esomeprazole magnesium 40 mg granules delayed release for susp (Nexium Packet) 4 0 mg PO DAILY #60 ea 09/02/22 [Rx Last Taken Unknown] hydrocodone 10 mg-acetaminophen 300 mg/15 mL oral solution (Lortab Elixir) 7.5 - 15 ml PO Q6H PRN pain 3 days #45 mL 09/02/22 [Rx Last Taken Unknown] Allergy/AdvReac Type Severity Reaction Status Date / Time No Known Allergies Allergy Verified 08/31/22 14:38 Family History Mother ALS (amyotrophic lateral sclerosis) Grandmother ALS (amyotrophic lateral sclerosis) Social History Smoking Status: Never smoker ROS Review of Systems ROS Unobtainable: other Details: Limited due to reluctance to volunteer information and also intellectual difficulties. Physical Exam Const alert and no apparent distress HEENT normocephalic and head/scalp atraumatic Resp normal respiratory effort and no retractions Resp Narrative: Did not allow me to listen to his back Cardio regular rate, regular rhythm, S1 normal heart sound and S2 normal heart sound GI normal to inspection, nondistended, normoactive bowel sounds GI Narrative: Abdomen is tender around the PEG tube. Did not remove the bandage Extremity normal to inspection and no clubbing, cyanosis or edema Medical Records Data Medical Nutrition Assessment Dietitian: Malnutrition Criteria Met Start: 09/01/22 11:34 Freq: Status: Active Protocol: Document 09/01/22 11:34 (Rec: 09/01/22 11:34 [id number]) Nutrition Malnutrition Evidence of Malnutrition Exists Yes Malnutrition (severe): Chronic Evidenced By Suboptimal Energy Intake ( Severe),Weight Loss (Severe), Physical Changes (Severe) Clinical Problem Chronic Disease or Condition Related Malnutrition Etiology chronic, severe malnutrition r /t swallowing difficulty, inadequate oral intake Signs/Symptoms as evidenced by unintentional wt loss of 87.1#/44% < 1 year; estimated PO intake meeting < 50% of estimated energy needs > 3 months; severe muscle wasting/fat loss in orbital, temporal, clavicle, and acromion areas; BMI 15.7 Status Active Problem Recommendation Dietitian Recommendations/Changes Via PEG- Jevity 1.5 250mL bolus 5x/day w/ 100mL H2O flush before and after each bolus to provide 1875 calories , 80 g protein, and 1950mL total fluid/day. Would start w / 125mL for first feeding, increase to 175mL for second feeding as tolerated and then advance to goal for third feeding as tolerated. Lab / Micro Data Result Diagrams: 09/02/22 04:07 09/02/22 04:07 Labs: Laboratory Results - last 24 hr 09/02/22 04:07: Sodium 133 L, Potassium 4.0, Chloride 98, Carbon Dioxide 28.0, Anion Gap 7, BUN 9, Creatinine 0.72, Estim Creat Clear Calc 118.52, Est GFR (MDRD) Af Amer 176, Est GFR (MDRD) Non-Af 145, BUN/Creatinine Ratio 12.4, Glucose 140 H, Calcium 9.3, Phosphorus 3.1, Magnesium 1.8, Total Bilirubin 1.30 H, AST 8 L, ALT 22, Alkaline Phosphatase 90, Total Protein 7.4, Albumin 3.5, Globulin 3.9, Albumin/Globulin Ratio 0.9 09/02/22 04:07: WBC 19.4 H, RBC 5.00, Hgb 14.6, Hct 43.2, MCV 86.4, MCH 29.2, MCHC 33.8, RDW Std Deviation 39.2, RDW Coeff of [place] 12.6, Plt Count 344, MPV 11.7, Immature Gran % (Auto) 0.600, Neut % (Auto) 86.2 H, Lymph % (Auto) 6.9 L, [place] % (Auto) 5.8, Eos % (Auto) 0.1, Baso % (Auto) 0.4, Absolute Neuts (auto) 16.7 H, Absolute Lymphs (auto) 1.34, Nucleated RBC % 0 Radiology Impression Chest X-Ray 09/02/22 17:40 IMPRESSION: 1. LEFT lower lobe infiltrate/pneumonia. 2. Remaining lung zones are clear. 3. No congestive failure. Electronically Signed: Vasyl Patterson MD at 18:13 EST , Charges/Coding Visit Charges Inpatient E&M: 56282 Init Hosp L2
[2022-09-03] VITALS (8 sets, daily range): BP systolic 111–126; BP diastolic 66–73; PULSE 100–114; RESP 16–18; TEMP 36.6–38.4; O2SAT 93–100
[2022-09-03] MEDS: Lactated Ringers 1,000 ML 100 ML IV ×3 (03:54→23:39)
[2022-09-03] MEDS: Ondansetron 4 MG/2 ML Vial 8 MG IV (04:04)
[2022-09-03] MEDS: Morphine 2 MG/ML Syringe IV (04:04)
[2022-09-03] MEDS: Jevity 1.5. 1,000 ML Bottle 250 ML GT ×5 (06:03→22:21)
[2022-09-03 07:04] LABS: Absolute Lymphocyte Count 1.28 X10^3/uL (0.83-4.51); Absolute Neutrophil Count 20.9 X10^3/uL (2.0-7.7); Basophil# 0.05 X10^3/uL; Basophil% 0.2 % (0-1); Eosinophil# 0.02 X10^3/uL; Eosinophils% 0.1 % (0-5); Hematocrit 37.8 % (40-54); Hemoglobin 12.6 g/dL (13.0-16.5); Lymphocyte # 1.28 X10^3/ul (0.83-4.51); Lymphocyte % 5.3 % (19-41); Mean Corp Hgb Conc 33.3 g/dL (32-36); Mean Corpuscular Hgb 29.3 pg (27.0-32.0); Mean Corpuscular Volume 87.9 fL (80-94); Mean Platelet Vol. 11.9 fl (6.2-12.0); Monocyte# 1.65 X10^3/uL; Monocyte% 6.9 % (0-10); NRBC Flagged by Analyzer 0 % (0-5); Neutrophil % 86.8 % (47-70); POSITIVE DIFFERENTIAL YES; Platelet Count 244 K/mm3 (150-450); RBC Distribution Width CV 13.2 % (11.6-14.6); RBC Distribution Width SD 41.6 fl (35.1-43.9); White Blood Count 24.1 K/mm3 (4.4-11.0)
[2022-09-03 07:12] LABS: Differential Indicated SCAN CRITERIA MET
[2022-09-03 07:41] LABS: ALB/GLOB Ratio 0.8 RATIO (0.9-2.4); AST(SGOT) 10 U/L (15-37); Alanine Aminotransfer ALT/SGPT 16 U/L (16-61); Albumin, Serum 2.8 g/dL (3.2-5.0); Alkaline Phosphatase 80 U/L (45-117); Anion Gap 4 (5-15); BUN 6 mg/dL (7-18); BUN/Creat Ratio 14.5 RATIO (10-20); Chloride 104 mmol/L (98-107); Creatinine, Serum 0.41 mg/dL (0.70-1.30); EST Glomerular Filtration Rate 278 mL/min (>60); Est Glom Filt Rate - Afr Amer 336 mL/min (>60); Estimated Creatinine Clearance 209.76 ml/min; Globulin 3.7 g/dL (2.2-4.2); Glucose 97 mg/dL (74-106); Potassium 3.5 mmol/L (3.5-5.1); Protein, Total 6.5 g/dL (6.4-8.2); Sodium Level 138 mmol/L (136-145)
[2022-09-03 07:47] LABS: Reactive Lymphocyte 1+
--- NOTE | 2022-09-03 09:34 | PN.SURG_ITS ---
Subjective Subjective Patient had a fever of 101 yesterday white blood cell count was 19 on check. Chest x-ray also showed a left lobe infiltrate. Hospitalist was consulted. Patient's white blood counts mornings 24. Patient only has pain right at the site of the PEG tube. Objective Data Objective Data Vital Signs: Vital Signs Temp Pulse Resp BP Pulse Ox O2 Del Method O2 Flow Rate 98.8 F 113 H 18 123/67 H 97 Room Air 2 09/03/22 08:38 09/03/22 08:38 09/03/22 08:38 09/03/22 08:38 09/03/22 08:38 09/03/22 08:44 09/03/22 05:52 Oxygen Flow Rate (L/min) 2 Oxygen Delivery Method Room Air Weight: 113 lb 12.136 oz Body Mass Index (BMI) 15.7 Intake & Output: Intake and Output for Last 24 Hours 09/01/22 09/02/22 09/03/22 23:59 23:59 23:59 Intake Total 2803.17 / 2803.17 2575 / 2575 966.67 / 966.67 Output Total 550 / 550 Balance 2803.17 / 2603.17 2024 / 2024 966.67 / 966.67 Medical Nutrition Assessment Dietitian: Malnutrition Criteria Met Start: 09/01/22 11:34 Freq: Status: Active Protocol: Document 09/01/22 11:34 AG (Rec: 09/01/22 11:34 [id number]) Nutrition Malnutrition Evidence of Malnutrition Exists Yes Malnutrition (severe): Chronic Evidenced By Suboptimal Energy Intake ( Severe),Weight Loss (Severe), Physical Changes (Severe) Clinical Problem Chronic Disease or Condition Related Malnutrition Etiology chronic, severe malnutrition r /t swallowing difficulty, inadequate oral intake Signs/Symptoms as evidenced by unintentional wt loss of 87.1#/44% < 1 year; estimated PO intake meeting < 50% of estimated energy needs > 3 months; severe muscle wasting/fat loss in orbital, temporal, clavicle, and acromion areas; BMI 15.7 Status Active Problem Recommendation Dietitian Recommendations/Changes Via PEG- Jevity 1.5 250mL bolus 5x/day w/ 100mL H2O flush before and after each bolus to provide 1875 calories , 80 g protein, and 1950mL total fluid/day. Would start w / 125mL for first feeding, increase to 175mL for second feeding as tolerated and then advance to goal for third feeding as tolerated. Lab / Micro Data Result Diagrams: 09/03/22 06:13 09/03/22 06:13 Labs: Laboratory Results - last 24 hr 09/02/22 04:07: WBC 19.4 H, RBC 5.00, Hgb 14.6, Hct 43.2, MCV 86.4, MCH 29.2, MCHC 33.8, RDW Std Deviation 39.2, RDW Coeff of [place] 12.6, Plt Count 344, MPV 11.7, Immature Gran % (Auto) 0.600, Neut % (Auto) 86.2 H, Lymph % (Auto) 6.9 L, [place] % (Auto) 5.8, Eos % (Auto) 0.1, Baso % (Auto) 0.4, Absolute Neuts (auto) 16.7 H, Absolute Lymphs (auto) 1.34, Nucleated RBC % 0 09/03/22 06:13: Sodium 138, Potassium 3.5, Chloride 104, Carbon Dioxide 30.0, Anion Gap 4 L, BUN 6 L, Creatinine 0.41 L, Estim Creat Clear Calc 209.76, Est GFR (MDRD) Af Amer 336, Est GFR (MDRD) Non-Af 278, BUN/Creatinine Ratio 14.5, Glucose 97, Calcium 9.0, Total Bilirubin 0.90, AST 10 L, ALT 16, Alkaline Ph osphatase 80, Total Protein 6.5, Albumin 2.8 L, Globulin 3.7, Albumin/Globulin Ratio 0.8 L 09/03/22 06:13: WBC 24.1 H, RBC 4.30 L, Hgb 12.6 L, Hct 37.8 L, MCV 87.9, MCH 29.3, MCHC 33.3, RDW Std Deviation 41.6, RDW Coeff of [place] 13.2, Plt Count 244, MPV 11.9, Immature Gran % (Auto) 0.700, Neut % (Auto) 86.8 H, Lymph % (Auto) 5.3 L, [place] % (Auto) 6.9, Eos % (Auto) 0.1, Baso % (Auto) 0.2, Absolute Neuts (auto) 20.9 H, Absolute Lymphs (auto) 1.28, Nucleated RBC % 0, Diff Path Review May foll, Reactive Lymphocytes 1+ Micro: Microbiology 09/02/22 18:18 Nasal Secretion SARS-CoV-2 Antigen (Rapid) - Final Radiography Diagnostic Testing: Radiology Impression Chest X-Ray 09/02/22 17:40 IMPRESSION: 1. LEFT lower lobe infiltrate/pneumonia. 2. Remaining lung zones are clear. 3. No congestive failure. Electronically Signed: Vasyl Patterson MD at 18:13 EST , Physical Exam Const no apparent distress Resp normal respiratory effort Cardio regular rate GI GI Narrative: PEG in place site clean dry and intact, minimally tender near PEG tube, soft, no peritoneal signs nondistended Assessment & Plan Assessment/Plan (1) Dysphagia: QUALIFIERS: Dysphagia type: unspecified Qualified Code(s): R13.10 - Dysphagia, unspecified (2) Aspiration into airway: (3) Adult failure to thrive: (4) Body mass index less than 16.5: (5) Fever: QUALIFIERS: Fever type: unspecified Qualified Code(s): R50.9 - Fever, unspecified (6) Aspiration pneumonia: PLAN: Plan Due to patient's fever and elevated white blood cell count and chest x-ray did start patient on Unasyn 3 g IV every 8 hours. Hospitalist also consulted. Discussed with patient father would continue to monitor his white blood cell count but he would definitely stay in the hospital today. Continue tube feeds as tolerated. Continue Protonix IV Kimberly Montesinos M.D. Pager: [phone] [facility] [address] [place] [address], Outpatient [place], [address] [place] [address] Office: [phone] Charges/Coding Visit Charges Inpatient E&M: 47566 Subs Hosp L3
[2022-09-03 10:45] LABS: Bacteria 0 SEEN /hpf (None Seen); Mucous, Urine 0 SEEN /hpf (<or=2+); Red Blood Cells-Urine 0 SEEN /hpf (0-5); Squamous Epithelial Cells - UA 0 SEEN /hpf (0-5); White Blood Cells 0 SEEN /hpf (0-5)
[2022-09-03 10:55] LABS: Color, Urine Yellow (Yellow); Glucose, Dipstick 100 mg/dl (Normal); Ketone-Dipstick 5 mg/dl (Negative); Leukocyte Esterase-Dipstick Negative /ul (Negative); Nitrite-Dipstick Negative (Negative); Occult Blood-Urine Negative /ul (Negative); Protein-Dipstick 15 mg/dl (Negative); Urine Bilirubin Dipstick Negative (Negative); Urine Clarity Clear (Clear); Urine Urobilinogen 8 mg/dl (Normal)
[2022-09-03 14:12] LABS: Pathologist Review Reviewed
[2022-09-03] MEDS: HYDROCODONE/APAP 7.5-325/15ML 15 ML UDC 5 ML PO (15:56)
--- NOTE | 2022-09-03 15:58 | CASEMGMT ---
RAZA CANAS DC Planning Assessment: Face to Face with patient's father Zhang at [facility] for initial transition planning/care coordination assessment. Pt with intellectual disabilities and speech not able to be understood. RAZA CANAS introduced self and role at [facility], pt's father voiced understanding.? Care providers, pharmacy,?and demographics verified. Admission dx: aspiration pneumonia, PEG tube placement PCP: Jesusita Akers Specialists: Speech Therapy only Preferred Pharmacy: [facility] [place] Insurance: [employer] Prescription Benefit:?Yes Living Will/HPOA: No. Pt's father states he is pt's guardian through the life insurance and if something happens to me then my sister will be. LNOK: Pt's father Zhang Living Arrangements: Pt lives in a mobile home with pt's father. There are 3 steps to enter with a handrail. Pt is independent with ADLs. Pt's father completes household tasks. Transportation: Pt's father drives pt as needed DME: shower chair and w/c available but pt does not use any DME at baseline. SNF/HHC: pt's father denies previous providers Plan: Pt to return home with tube feeds as previously arranged by the dietitian. Pt's father states he has administered the TF three times and feels comfortable. Discussed need for follow-up with neurologist at discharge. Pt's father continued to state he did not feel pt's swallowing challenges are related to Esmer Gehrig's Disease due to pt not having suffered a triggering traumatic event. Pt ambulating in room without assistance and able to give a thumbs up that he is doing well. Shield's to follow-up with pt's father for continued teaching and follow-up at discharge. Jos Thomas RN CM
--- NOTE | 2022-09-03 16:50 | PCM.PN.HOSP ---
Subjective Subjective Follow-up for fever possible aspiration pneumonia. Objective Data Objective Data Vital Signs: Vital Signs Temp Pulse Resp BP Pulse Ox O2 Del Method O2 Flow Rate 101.2 F H 109 H 18 126/66 H 93 Room Air 2 09/03/22 15:44 09/03/22 14:00 09/03/22 14:00 09/03/22 14:00 09/03/22 14:00 09/03/22 14:00 09/03/22 05:52 Oxygen Flow Rate (L/min) 2 Oxygen Delivery Method Room Air Weight: 113 lb 12.136 oz Body Mass Index (BMI) 15.7 Intake & Output: Intake and Output for Last 24 Hours 09/01/22 09/02/22 09/03/22 23:59 23:59 23:59 Intake Total 2803.17 / 2803.17 2575 / 2575 2500.67 / 2500.67 Output Total 550 / 550 120 / 120 Balance 2803.17 / 2603.17 2024 / 2024 2380.67 / 2380.67 Medical Nutrition Assessment Dietitian: Malnutrition Criteria Met Start: 09/01/22 11:34 Freq: Status: Active Protocol: Document 09/03/22 10:08 (Rec: 09/03/22 10:09 [id number]) Nutrition Malnutrition Evidence of Malnutrition Exists Yes Malnutrition (severe): Chronic Evidenced By Suboptimal Energy Intake ( Severe),Weight Loss (Severe), Physical Changes (Severe) Clinical Problem Chronic Disease or Condition Related Malnutrition Etiology chronic, severe malnutrition r /t swallowing difficulty, inadequate oral intake Signs/Symptoms as evidenced by unintentional wt loss of 87.1#/44% < 1 year; estimated PO intake meeting < 50% of estimated energy needs > 3 months; severe muscle wasting/fat loss in orbital, temporal, clavicle, and acromion areas; BMI 15.7 Status Active Problem Recommendation Dietitian Recommendations/Changes Via PEG- Jevity 1.5 250mL bolus 5x/day w/ 100mL H2O flush before and after each bolus to provide 1875 calories , 80 g protein, and 1950mL total fluid/day. Lab / Micro Data Result Diagrams: 09/03/22 06:13 09/03/22 06:13 Labs: Laboratory Results - last 24 hr 09/02/22 04:07: WBC 19.4 H, RBC 5.00, Hgb 14.6, Hct 43.2, MCV 86.4, MCH 29.2, MCHC 33.8, RDW Std Deviation 39.2, RDW Coeff of [place] 12.6, Plt Count 344, MPV 11.7, Immature Gran % (Auto) 0.600, Neut % (Auto) 86.2 H, Lymph % (Auto) 6.9 L, [place] % (Auto) 5.8, Eos % (Auto) 0.1, Baso % (Auto) 0.4, Absolute Neuts (auto) 16.7 H, Absolute Lymphs (auto) 1.34, Nucleated RBC % 0 09/03/22 06:13: Sodium 138, Potassium 3.5, Chloride 104, Carbon Dioxide 30.0, Anion Gap 4 L, BUN 6 L, Creatinine 0.41 L, Estim Creat Clear Calc 209.76, Est GFR (MDRD) Af Amer 336, Est GFR (MDRD) Non-Af 278, BUN/Creatinine Ratio 14.5, Glucose 97, Calcium 9.0, Total Bilirubin 0.90, AST 10 L, ALT 16, Alkaline Phosphatase 80, Total Protein 6.5, Albumin 2.8 L, Globulin 3.7, Albumin/Globulin Ratio 0.8 L 09/03/22 06:13: WBC 24.1 H, RBC 4.30 L, Hgb 12.6 L, Hct 37.8 L, MCV 87.9, MCH 29.3, MCHC 33.3, RDW Std Deviation 41.6, RDW Coeff of [place] 13.2, Plt Count 244, MPV 11.9, Immature Gran % (Auto) 0.700, Neut % (Auto) 86.8 H, Lymph % (Auto) 5.3 L, [place] % (Auto) 6.9, Eos % (Auto) 0.1, Baso % (Auto) 0.2, Absolute Neuts (auto) 20.9 H, Absolute Lymphs (auto) 1.28, Nucleated RBC % 0, Diff Path Review Reviewed, Reactive Lymphocytes 1+ 09/03/22 10:30: Urine Color Yellow, Urine Clarity Clear, Urine pH 8.0, Ur Specific [place] 1.010, Urine Protein 15 H, Urine Glucose (UA) 100 H, Urine Ketones 5 H, Urine Occult Blood Negative, Urine Nitrite Negative, Urine Bilirubin Negative, Urine Urobilinogen 8 H, Ur Leukocyte Esterase Negative, Urine RBC 0 SEEN, Urine WBC 0 SEEN, Ur Squamous Epith Cells 0 SEEN, Urine Bacteria 0 SEEN, Urine Mucus 0 SEEN Micro: Microbiology 09/02/22 18:18 Nasal Secretion SARS-CoV-2 Antigen (Rapid) - Final Radiography Diagnostic Testing: Radiology Impression Chest X-Ray 09/02/22 17:40 IMPRESSION: 1. LEFT lower lobe infiltrate/pneumonia. 2. Remaining lung zones are clear. 3. No congestive failure. Electronically Signed: Vasyl Patterson MD at 18:13 EST , Physical Exam Narrative Seen and examined. Temperature 101.2 ?F. Mild tachycardia. History mainly taken from patient's father near the bedside. It seems patient had anoxic brain injury during period as his vocal cords were wrapped around as per his father. Patient had PEG tube placed. Physical exam General: Awake, seems no apparent distress. Orientation cannot be obtained. Severe malnutrition, BMI 15.9 kg/m? HEENT: Atraumatic, PERRLA, EOMI, Normocephalic Oral: Oral mucosa dry. Neck: Supple, No JVD, Negative Carotid Bruits Lungs: Air entry diminished in bilateral lung bases. No crepitation/rhonchi Cardiovascular: Regular rate, Regular Rhythm, Normal S1, Normal S2, No murmurs Abdomen: PEG tube normal exam. No significant tenderness. Bowel Sounds Present, Soft, Non-Distended : No renal angle tenderness. No suprapubic tenderness. Extremities: No edema, Capillary Refill Less than 3 Seconds Skin: No rashes, No breakdown Musculoskeletal: Contractures present in lower extremity joints. No Tenderness to Palpation of Joints or Extremities Neurological: Detailed neuro exam unobtainable. Muscle strength, cranial nerves, sensory exam could not be obtained Psych/Mental Status: Flat affect, cognitive deficit. Assessment & Plan Assessment/Plan (1) Fever: QUALIFIERS: Fever type: unspecified Qualified Code(s): R50.9 - Fever, unspecified PLAN: Etiology unclear at this time. Seems mostly aspiration pneumonia as patient has history of dysphagia and had PEG tube. Chest x-ray individually reviewed shows left lower lobe infiltrate suggestive of pneumonia. Uncommon site for aspiration. Remaining lung tafoya clear no congestion. Continue IV Unasyn. Flu and RSV panel is ordered. SARS-CoV-2 negative. Patient has leukocytosis with neutrophilia, left shift. Electrolytes in normal range. UA shows WBC 0. LE negative. Nitrite negative. (2) Severe protein-calorie malnutrition: PLAN: On Jevity tube feeds Patient has severe hypoalbuminemia, albumin 2.8. (3) Dysphagia: QUALIFIERS: Dysphagia type: unspecified Qualified Code(s): R13.10 - Dysphagia, unspecified PLAN: Status post PEG tube placement Management per general surgery PLAN: Plan ADHD and intellectual limitations. Complicates care and recovery. VTE prophylaxis with SCDs. Charges/Coding Visit Charges Inpatient E&M: 57273 Subs Hosp L2
--- NOTE | 2022-09-03 17:22 | NURSING ---
Report called to Anne-Marie PERSON on MS3
[2022-09-04 05:00] VITALS: BP 102/58; PULSE 103; RESP 18; TEMP 37.5; O2SAT 93
[2022-09-04] MEDS: Jevity 1.5. 1,000 ML Bottle 250 ML GT ×4 (05:28→17:25)
[2022-09-04 05:55] LABS: Absolute Lymphocyte Count 1.57 X10^3/uL (0.83-4.51); Absolute Neutrophil Count 17.5 X10^3/uL (2.0-7.7); Basophil# 0.04 X10^3/uL; Basophil% 0.2 % (0-1); Eosinophil# 0.07 X10^3/uL; Eosinophils% 0.3 % (0-5); Hematocrit 37.2 % (40-54); Hemoglobin 12.6 g/dL (13.0-16.5); Lymphocyte # 1.57 X10^3/ul (0.83-4.51); Lymphocyte % 7.4 % (19-41); Mean Corp Hgb Conc 33.9 g/dL (32-36); Mean Corpuscular Volume 88.6 fL (80-94); Mean Platelet Vol. 11.8 fl (6.2-12.0); Monocyte# 1.85 X10^3/uL; Monocyte% 8.7 % (0-10); NRBC Flagged by Analyzer 0 % (0-5); Neutrophil # 17.49 X10^3/uL (2.7-7.7); Neutrophil % 82.7 % (47-70); POSITIVE DIFFERENTIAL YES; Platelet Count 236 K/mm3 (150-450); RBC Distribution Width CV 13.2 % (11.6-14.6); RBC Distribution Width SD 42.6 fl (35.1-43.9); White Blood Count 21.2 K/mm3 (4.4-11.0)
[2022-09-04 06:12] LABS: Differential Indicated SCAN CRITERIA MET
[2022-09-04 06:20] LABS: ALB/GLOB Ratio 0.7 RATIO (0.9-2.4); AST(SGOT) 9 U/L (15-37); Alanine Aminotransfer ALT/SGPT 16 U/L (16-61); Albumin, Serum 2.7 g/dL (3.2-5.0); Alkaline Phosphatase 91 U/L (45-117); Anion Gap 6 (5-15); BUN 6 mg/dL (7-18); BUN/Creat Ratio 14.6 RATIO (10-20); Calcium,Total 8.9 mg/dL (8.5-10.1); Chloride 104 mmol/L (98-107); Creatinine, Serum 0.41 mg/dL (0.70-1.30); EST Glomerular Filtration Rate 279 mL/min (>60); Est Glom Filt Rate - Afr Amer 338 mL/min (>60); Estimated Creatinine Clearance 209.76 ml/min; Globulin 3.7 g/dL (2.2-4.2); Glucose 93 mg/dL (74-106); Potassium 3.8 mmol/L (3.5-5.1); Protein, Total 6.4 g/dL (6.4-8.2); Sodium Level 138 mmol/L (136-145)
[2022-09-04 06:44] LABS: Differential Comment SCANNED
[2022-09-04 08:30] VITALS: O2SAT 96
--- NOTE | 2022-09-04 08:47 | PCM.PN.SRG ---
Subjective Subjective Lucas TF, WBC down to 21; wants to go home Objective Data Objective Data Vital Signs: Vital Signs Temp Pulse Resp BP Pulse Ox O2 Del Method O2 Flow Rate 99.5 F H 103 H 18 102/58 L 93 Room Air 2 09/04/22 05:00 09/04/22 05:00 09/04/22 05:00 09/04/22 05:00 09/04/22 05:00 09/04/22 05:00 09/03/22 05:52 Oxygen Flow Rate (L/min) 2 Oxygen Delivery Method Room Air Weight: 111 lb 15.917 oz Body Mass Index (BMI) 15.7 Intake & Output: Intake and Output for Last 24 Hours 09/02/22 09/03/22 09/04/22 23:59 23:59 23:59 Intake Total 2575 / 2575 3347.67 / 3347.67 1493.67 / 1493.67 Output Total 550 / 550 120 / 120 Balance 2024 / 2024 3227.67 / 3227.67 1493.67 / 1493.67 Medical Nutrition Assessment Dietitian: Malnutrition Criteria Met Start: 09/01/22 11:34 Freq: Status: Active Protocol: Document 09/03/22 10:08 (Rec: 09/03/22 10:09 [id number]) Nutrition Malnutrition Evidence of Malnutrition Exists Yes Malnutrition (severe): Chronic Evidenced By Suboptimal Energy Intake ( Severe),Weight Loss (Severe), Physical Changes (Severe) Clinical Problem Chronic Disease or Condition Related Malnutrition Etiology chronic, severe malnutrition r /t swallowing difficulty, inadequate oral intake Signs/Symptoms as evidenced by unintentional wt loss of 87.1#/44% < 1 year; estimated PO intake meeting < 50% of estimated energy needs > 3 months; severe muscle wasting/fat loss in orbital, temporal, clavicle, and acromion areas; BMI 15.7 Status Active Problem Recommendation Dietitian Recommendations/Changes Via PEG- Jevity 1.5 250mL bolus 5x/day w/ 100mL H2O flush before and after each bolus to provide 1875 calories , 80 g protein, and 1950mL total fluid/day. Lab / Micro Data Result Diagrams: 09/04/22 04:52 09/04/22 04:52 Labs: Laboratory Results - last 24 hr 09/03/22 06:13: Diff Path Review Reviewed 09/03/22 10:30: Urine Color Yellow, Urine Clarity Clear, Urine pH 8.0, Ur Specific [place] 1.010, Urine Protein 15 H, Urine Glucose (UA) 100 H, Urine Ketones 5 H, Urine Occult Blood Negative, Urine Nitrite Negative, Urine Bilirubin Negative, Urine Urobilinogen 8 H, Ur Leukocyte Esterase Negative, Urine RBC 0 SEEN, Urine WBC 0 SEEN, Ur Squamous Epith Cells 0 SEEN, Urine Bacteria 0 SEEN, Urine Mucus 0 SEEN 09/04/22 04:52: Sodium 138, Potassium 3.8, Chloride 104, Carbon Dioxide 28.0, Anion Gap 6, BUN 6 L, Creatinine 0.41 L, Estim Creat Clear Calc 209.76, Est GFR (MDRD) Af Amer 338, Est GFR (MDRD) Non-Af 279, BUN/Creatinine Ratio 14.6, Glucose 93, Calcium 8.9, Total Bilirubin 0.80, AST 9 L, ALT 16, Alkaline Phosphatase 91, Total Protein 6.4, Albumin 2.7 L, Globulin 3.7, Albumin/Globulin Ratio 0.7 L 09/04/22 04:52: WBC 21.2 H, RBC 4.20 L, Hgb 12.6 L, Hct 37.2 L, MCV 88.6, MCH 30.0, MCHC 33.9, RDW Std Deviation 42.6, RDW Coeff of [place] 13.2, Plt Count 236, MPV 11.8, Immature Gran % (Auto) 0.700, Neut % (Auto) 82.7 H, Lymph % (Auto) 7.4 L, [place] % (Auto) 8.7, Eos % (Auto) 0.3, Baso % (Auto) 0.2, Absolute Neuts (auto) 17.5 H, Absolute Lymphs (auto) 1.57, Nucleated RBC % 0, Differential Comment SCANNED, Diff Path Review May foll Micro: Microbiology 09/02/22 15:16 Mucosa - Nasopharyngeal - Final 09/02/22 18:18 Nasal Secretion SARS-CoV-2 Antigen (Rapid) - Final Physical Exam Const no apparent distress Resp normal respiratory effort Cardio regular rate GI GI Narrative: PEG in place site clean dry and intact, minimally tender near PEG tube, soft, no peritoneal signs nondistended Assessment & Plan Assessment/Plan (1) Dysphagia: QUALIFIERS: Dysphagia type: unspecified Qualified Code(s): R13.10 - Dysphagia, unspecified (2) Aspiration into airway: (3) Adult failure to thrive: (4) Body mass index less than 16.5: (5) Fever: QUALIFIERS: Fever type: unspecified Qualified Code(s): R50.9 - Fever, unspecified (6) Aspiration pneumonia: PLAN: Plan Pt wbc improving on Unasyn-- if no fever today-- ok for d/c w augmentin x 10 days via PEG. Continue tube feeds as tolerated. Continue Protonix IV--changed to nexium granules for d/c Kimberly Montesinos M.D. Pager: [phone] [facility] [address] [place] [address], [facility], [address] [place] [address] Office: [phone]
--- NOTE | 2022-09-04 09:10 | PCM.PN.HOSP ---
Subjective Subjective Patient is alert 21-year-old male admitted with evaluation for significant weight loss. He went swallow eval PEG tube was recommended admitted under general surgery with consultation placed to medicine Objective Data Objective Data Vital Signs: Vital Signs Temp Pulse Resp BP Pulse Ox O2 Del Method O2 Flow Rate 99.5 F H 103 H 18 102/58 L 96 Room Air 2 09/04/22 05:00 09/04/22 05:00 09/04/22 05:00 09/04/22 05:00 09/04/22 08:30 09/04/22 08:30 09/03/22 05:52 Oxygen Flow Rate (L/min) 2 Oxygen Delivery Method Room Air Weight: 50.8 kg Body Mass Index (BMI) 15.7 Intake & Output: Intake and Output for Last 24 Hours 09/02/22 09/03/22 09/04/22 23:59 23:59 23:59 Intake Total 2575 / 2575 3347.67 / 3347.67 1493.67 / 1493.67 Output Total 550 / 550 120 / 120 Balance 2024 3227.67 / 3227.67 1493.67 / 1493.67 Medical Nutrition Assessment Dietitian: Malnutrition Criteria Met Start: 09/01/22 11:34 Freq: Status: Active Protocol: Document 09/03/22 10:08 (Rec: 09/03/22 10:09 [id number]) Nutrition Malnutrition Evidence of Malnutrition Exists Yes Malnutrition (severe): Chronic Evidenced By Suboptimal Energy Intake ( Severe),Weight Loss (Severe), Physical Changes (Severe) Clinical Problem Chronic Disease or Condition Related Malnutrition Etiology chronic, severe malnutrition r /t swallowing difficulty, inadequate oral intake Signs/Symptoms as evidenced by unintentional wt loss of 87.1#/44% < 1 year; estimated PO intake meeting < 50% of estimated energy needs > 3 months; severe muscle wasting/fat loss in orbital, temporal, clavicle, and acromion areas; BMI 15.7 Status Active Problem Recommendation Dietitian Recommendations/Changes Via PEG- Jevity 1.5 250mL bolus 5x/day w/ 100mL H2O flush before and after each bolus to provide 1875 calories , 80 g protein, and 1950mL total fluid/day. Lab / Micro Data Result Diagrams: 09/04/22 04:52 09/04/22 04:52 Labs: Laboratory Results - last 24 hr 09/03/22 06:13: Diff Path Review Reviewed 09/03/22 10:30: Urine Color Yellow, Urine Clarity Clear, Urine pH 8.0, Ur Specific Wesley 1.010, Urine Protein 15 H, Urine Glucose (UA) 100 H, Urine Ketones 5 H, Urine Occult Blood Negative, Urine Nitrite Negative, Urine Bilirubin Negative, Urine Urobilinogen 8 H, Ur Leukocyte Esterase Negative, Urine RBC 0 SEEN, Urine WBC 0 SEEN, Ur Squamous Epith Cells 0 SEEN, Urine Bacteria 0 SEEN, Urine Mucus 0 SEEN 09/04/22 04:52: Sodium 138, Potassium 3.8, Chloride 104, Carbon Dioxide 28.0, Anion Gap 6, BUN 6 L, Creatinine 0.41 L, Estim Creat Clear Calc 209.76, Est GFR (MDRD) Af Amer 338, Est GFR (MDRD) Non-Af 279, BUN/Creatinine Ratio 14.6, Glucose 93, Calcium 8.9, Total Bilirubin 0.80, AST 9 L, ALT 16, Alkaline Phosphatase 91, Total Protein 6.4, Albumin 2.7 L, Globulin 3.7, Albumin/Globulin Ratio 0.7 L 09/04/22 04:52: WBC 21.2 H, RBC 4.20 L, Hgb 12.6 L, Hct 37.2 L, MCV 88.6, MCH 30.0, MCHC 33.9, RDW Std Deviation 42.6, RDW Coeff of [place] 13.2, Plt Count 236, MPV 11.8, Immature Gran % (Auto) 0.700, Neut % (Auto) 82.7 H, Lymph % (Auto) 7.4 L, [place] % (Auto) 8.7, Eos % (Auto) 0.3, Baso % (Auto) 0.2, Absolute Neuts (auto) 17.5 H, Absolute Lymphs (auto) 1.57, Nucleated RBC % 0, Differential Comment SCANNED, Diff Path Review January foll Micro: Microbiology 09/02/22 15:16 Mucosa - Nasopharyngeal - Final 09/02/22 18:18 Nasal Secretion SARS-CoV-2 Antigen (Rapid) - Final Physical Exam Narrative GENERAL: Cachectic HEENT: Atraumatic; normocephalic EYES; Anicteric, Normal Conjunctiva NECK; supple, normal thyroid, RESPIRATORY: Diminished to auscultation CARDIOVASCULAR: Regular S1 S2, GI: soft, normoactive bowel sounds, : No Renal angle tenderness; EXTREMITIES: No edema, no clubbing, MUSCULOSKELETAL: no muscle wasting NEURO: Awake; no lateralizing signs. SKIN: No Rash PSYCH; Flat affect Assessment & Plan Assessment/Plan (1) Dysphagia: QUALIFIERS: Dysphagia type: unspecified Qualified Code(s): R13.10 - Dysphagia, unspecified (2) Aspiration pneumonia: PLAN: Plan Patient is alert 21-year-old male admitted with evaluation for significant weight loss. He went swallow eval PEG tube was recommended admitted under general surgery with consultation placed to medicine 1. Dysphagia ? Status post PEG tube placement 2. Suspected aspiration pneumonia Chest x-ray demonstrated right lower lobe infiltrate started on Unasyn 3. Severe 10-calorie malnutrition ? As evidenced by decreased oral intake significant weight loss and low BMI patient underwent PEG tube as a result 4. ADHD with intellectual disability ? Supportive care 5. DVT prophylaxis ? Bilateral SCDs Charges/Coding Visit Charges Inpatient E&M: 81590 Subs Hosp L2
[2022-09-04 10:12] VITALS: BP 120/76; PULSE 100; RESP 16; TEMP 37.3; O2SAT 96
[2022-09-04] MEDS: Lactated Ringers 1,000 ML 100 ML IV (11:13)
[2022-09-04 14:06] VITALS: BP 113/78; PULSE 98; RESP 16; TEMP 36.8; O2SAT 100
[2022-09-04 17:26] VITALS: TEMP 37.5
[2022-09-07 13:59] LABS: Pathologist Review Reviewed
== END 2022-09-04 18:00 | disposition home or self-care (01) | DRG 137 ==
LOC: ED 20:38 → PCU 20:43 → MS3 09-03 17:37
PROVIDERS: Admitting Provider Surgery; Emergency Provider Emergency Medicine; PCP Family Medicine; Visit Provider Surgery
PROC: 0DJ08ZZ Inspection of Upper Intestinal Tract, Via Natural or Artificial Opening Endoscopic (ICD-10-PCS; CPT 43235; principal; 2022-09-01 13:40)
DX: J69.0 Pneumonitis due to inhalation of food and vomit (principal); E43 Unspecified severe protein-calorie malnutrition; Z43.1 Encounter for attention to gastrostomy; R62.7 Adult failure to thrive; K29.70 Gastritis, unspecified, without bleeding; R13.10 Dysphagia, unspecified; F79 Unspecified intellectual disabilities; F90.9 Attention-deficit hyperactivity disorder, unspecified type; K22.89 Other specified disease of esophagus; R63.4 Abnormal weight loss; Z68.1 Body mass index [BMI] 19.9 or less, adult; Z79.899 Other long term (current) drug therapy; Z23 Encounter for immunization; Z82.69 Family history of other diseases of the musculoskeletal system and connective tissue
CPT/HCPCS: 36415; 71046; 74230; 80053; 81001; 83735; 84100; 85025; 87040; 87086; 87632; 87811; 88305; 88342; 92610; 92611; 97802; 97803; 99251; 99284; J7120; A4216; G0463; J0295; J2405

== ENCOUNTER → 2022-08-31 | Outpatient (CLI) | payer MEDICAID, SELFPAY ==
--- NOTE | 2022-08-31 14:31 | SP.MBSS_ITS ---
Modified Barium Swallow - Patient Information Study Date: 08/31/22 Study Time: 13:00 Direct Billable Minutes: 200 Total Minutes procedure & reportin Diagnosis: DYSPHAGIA (R13.10) Referring Physician: Jesusita Akers Reason for Referral: Objectively assess swallow function, risk for aspiration, and determine recommendations for least restrictive diet textures and compensatory strategies to improve safety of swallow. Medical History: Mata Portillo is a 21yo Male w/ developmental delay and ADHD. Patient was recently evaluated by an outpatient speech therapist w/ recommendations for Modified Barium Swallow Study. Patient is a very picky eater. Per OP ST Swallow Evaluation in Jul 2022, patient was able to tolerate 4oz of applesauce w/o difficulty as this is a preferred food. Intermittent coughing w/ thin liquids. Patient's father stated that this all began when Mata's beloved pet and mother about 6 months ago, this was very traumatic. Patient is afraid of something happening to him or his family. Family history of ALS and father suspects mother's cause of was undiagnosed ALS. Aunt also present for MBSS and she reports difficulty w/ swallowing began >1 yr ago. Also states he has excessive salivary glands also mentioned in the OP ST Swallow Evaluation. Mata had choking episode at [employer] roughly 4 months ago. Dad stated he was eating a soft shell taco when he began to choke and required him to do the Heimlich. Patient is terrified of choking again also contributing to poor PO intake. Since his mother , patient has had significant weight loss. Patient's father reported that Mata said he is fat, concerned for developing an eating disorder. Also noteworthy, patient w/ regressed verbal speech. Very difficult to understand in conversation w/o known context. Current Diet Ordered: Prior to study, patient was on regular/thin diet. Dentition: WNL Mental Status: Impaired Respiratory Status: Oxygenating on Room Air - Penetration-Aspiration Scale Penetration-Aspiration Scale: OBJECTIVE ASSESSMENT OF SWALLOW FUNCTION (QUANTITATIVE ? PER TRIAL): PENETRATION / ASPIRATION SCALE (ARRIAZA): 1 = does not enter airway 2 = enters airway/above vocal folds/ejected 3 = enters airway/above vocal folds/not ejected 4 = enters airway/contacts vocal folds/ejected 5 = enters airway/contacts vocal folds/not ejected 6 = enters airway/below vocal folds/ejected 7 = enters airway/below vocal folds/not ejected despite effort 8 = enters airway/below vocal folds/no effort VIDEOFLOROSCOPIC SCALE SCORE (ARRIAZA): Grade I = aspiration of material that has penetrated into the laryngeal vestibule, intact cough reflex Grade II = aspiration < 10 % of the bolus, intact cough reflex Grade III = aspiration of < 10 % of the bolus, reduced cough reflex or aspiration of > 10 % of the bolus, intact cough reflex Grade IV = aspiration of > 10 % of the bolus, reduced cough reflex - Penetration-Aspiration Scale Score Thin Liquid via small single sip from cup Result: 8= enters airway/below vocal folds/no effort Thin Liquid via small single sip from cup Trial 2 Result: 8= enters airway/below vocal folds/no effort [place] Thick Liquid via small single sip from cup Result: 8= enters airway/below vocal folds/no effort Pudding Result: 5= enters airways/contacts vocal folds/not ejected Comment: due to severity of swallow function, DNT all consistences - Oral Phase Labial Seal: No Labial Escape Tongue Control During Bolus Hold: Posterior escape of greater than half of bolus Bolus Preparation/Mastication: Minimal chewing/mashing with majority of bolus unchewed Bolus Transport/Lingual Motion: Minimal to no tongue motion Oral Residue: Minimal to no clearance - Pharyngeal Phase Initiation of Pharyngeal Swallow: Bolus head in pyriforms Soft Palate Elevation: No bolus between soft palate and pharyngeal wall Laryngeal Elevation: Min superior movement thyroid cart/min apprx aryte cart- epig petiole Anterior Hyoid Excursion: No anterior movement Epiglottic Movement: Partial inversion Laryngeal Vestibule Closure at Height of Swallow: Incomplete; narrow column of air/contrast in laryngeal vestibule Pharyngeal Stripping Wave: Present - diminished Pharyngoesophageal Segment Opening: Minimal distension and minimal duration; marked obstruction of flow Tongue Base Retraction: Narrow column of contrast between tongue base & post. pharyngeal wall Pharyngeal Residue: Minimal to no pharyngeal clearance - Treatment Strategies Effects of treatment strategies attemped:: effortful swallow = not effective cough and re-swallow = not effective multiple swallows = not effective - Diagnosis/Impression Diagnosis: severe to profound oropharyngeal dysphagia (R13.12) Impression: Severely impaired oral phase primarily marked by... - Oral holding w/ all consistencies observed resulting in premature bolus loss. - Moderate to severe suboptimal lingual control contributing to poor oral clearance. RAILROAD TRACK REPAIR SUPERVISOR attempted to remove oral residue w/ compensatory strategies such as liquid wash, multiple swallows w/ little to no improvement. - After several trials (thin, NTL, pudding) and no success w/ strategies, RAILROAD TRACK REPAIR SUPERVISOR had patient remove oral residue with napkin during study. Very poor AP bolus transportation resulting oral residue. Severely impaired pharyngeal phase primarily marked by... - Significant silent aspiration observed w/ all consistencies. - Decreased airway closure during deglutition attributed to reduced laryngeal elevation and extremely weak anterior hyoid excursion resulting in insufficient epiglottic inversion. - Minimal pharyngeal motility attributed to reduced tongue base retraction, reduced posterior pharyngeal stripping wave and reduced USE resulting in SEVERE pharyngeal retention. Contrast pooling into the pyriforms and spilling into the laryngeal vestibule to be aspirated. - RAILROAD TRACK REPAIR SUPERVISOR attempted to clear severe pharyngeal retention observed w/ all consistencies w/ effortful swallow and cough and re-swallow w/ little to no success. Patient w/ very weak, ineffective cough. - Recommendations Diet: NPO Comment: PEG as primary source of nutrition/hydration. Recommended implementation of the [place] Free Water Protocol following patient and family education. Recommend Repeat Modified Barium Swallow: Yes Need for Skilled Speech Therapy Services: Yes Comment: Recommending continued outpatient speech therapy targeting training and implementation of oropharyngeal strengthening exercise program w/ repeat MBSS in 4-6 months to assess progress and appropriateness for PO diet. Recommended Referrals: GI Consult, Dietitian Consult - In addition to GI consult and kitchen designer, recommending neurology consult. Education Completed: 1. Described result of evaluation., 4. Family/caregivers understand evaluation & agree w/ goals & tx plan. Comment: Patient and patient's family in agreement to proceed w/ alternative means of primary nutrition/hydration. Notified patient's primary physician office on MBSS results and recommendations and urgent need for PEG placement. Hospitalist RN faxed over referral to [facility] Radiology where patient will be discharged to [facility] ER for surgery. - Status Active ST Patient: Active - Contact Information [facility] Speech Therapy:: Veronika Fernandez M.A. [facility]-RAILRO[employer] TRACK REPAIR SUPERVISOR Speech-Language Pathologist [facility] [address] [place] [address] [email or web address] [phone] 08/31/22 14:50
== END | disposition home or self-care (01) ==
LOC: RAD 12:18
PROVIDERS: PCP Pediatrics; Visit Provider Nurse Practitioner Family
DX: R13.10 Dysphagia, unspecified (principal)
CPT/HCPCS: 74230; 92611

== ENCOUNTER 2022-10-06 15:58 | Emergency (ER) | payer MEDICAID, SELFPAY ==
[2022-10-06 16:00] VITALS: BP 126/109; PULSE 137; RESP 18; TEMP 36.3; O2SAT 96; BMI 16.0
--- NOTE | 2022-10-06 16:26 | ED.VIS.GI ---
HPI HPI - GI History of Present Illness Chief Complaint: Nausea/Vomiting Abdominal Pain/Flank Pain Worsened by: Nothing Relieved by: Nothing Nausea/Vomiting/Emesis GI Symptom: Positive for Nausea and Vomiting Onset: Today Quality: Negative for Blood streaks, Coffee ground or Hematemesis Diarrhea/Melena/Hematochezia GI Symptom: Negative for Diarrhea, Melena or Hematochezia Associated Symptoms Associated Symptoms: Negative for Dysuria, Frequency or Hematuria Narrative Narrative: Patient presents with nausea and vomiting that began today. Patient did have an episode of vomiting today. Patient has a PEG tube in because of chronic silent aspiration. Patient has a history of ALS. Patient did have some coughing after the emesis. Father denies any fevers or chills. Father denies any diarrhea, melena, or hematochezia. Father is concerned that patient may have aspirated. Father states patient is otherwise acting normally. Patient is a poor informant due to his ALS. [facility] Medical History (Updated 10/06/22 @ 17:[address] Adair Guevara DO) ADD (attention deficit disorder) ALS (amyotrophic lateral sclerosis) Aspiration pneumonia Intellectual delay Home Medications esomeprazole magnesium 40 mg granules delayed release for susp (Nexium Packet) 40 mg PO DAILY #60 ea 09/02/22 [Rx Last Taken Unknown] hydrocodone 10 mg-acetaminophen 300 mg/15 mL oral solution (Lortab Elixir) 7.5 - 15 ml PO Q6H PRN pain 3 days #45 mL 09/02/22 [Rx Last Taken Unknown] acetaminophen 500 mg/15 mL oral liquid 1,000 mg PO Q6H PRN 09/16/22 [History Last Taken Unknown] Allergy/AdvReac Type Severity Reaction Status Date / Time No Known Allergies Allergy Verified 10/06/22 15:59 Family History (Updated 09/16/22 @ 10:13 by Carine Navarrete) Mother ALS (amyotrophic lateral sclerosis) Heart disease Grandmother ALS (amyotrophic lateral sclerosis) Surgical History Status post insertion of percutaneous endoscopic gastrostomy (PEG) tube Social History Smoking Status: Never smoker second hand exposure: No alcohol intake: never substance use type: does not use meli/jehovah's witness: Buddhist seatbelt use: always ROS ROS ED Constitutional Constitutional ED: Denies chills or fever(s) Eyes Eyes: Denies blurry vision or change in vision ENT ENT ED: Denies rhinorrhea or sore throat Cardiovascular Cardiovascular: Denies chest pain or palpitations Respiratory/Chest Respiratory/Chest: Reports cough; Denies dyspnea Gastrointestinal Gastrointestinal: Reports nausea and vomiting Genitourinary Genitourinary ED: Denies dysuria or hematuria Musculoskeletal Musculoskeletal: Denies back pain or neck pain Integumentary Denies abscess or rash Neurologic Neurologic: Denies headache(s) or weakness Allergic/Immunologic Allergic/Immunologic ED: Denies mouth swelling or urticaria EXAM Physical Exam Const Vital Signs: 10/06/22 16:00 10/06/22 16:35 Temperature 97.3 F L Temperature Source Temporal Pulse Rate 137 H 87 Respiratory Rate 18 Blood Pressure 126/109 H 126/99 H Blood Pressure Mean 114 108 Pulse Ox 96 98 Oxygen Delivery Method Room Air Room Air Positive well nourished and well developed General Appearance ED: well developed and NAD HEENT Reports moist mucous membranes Neck supple and no JVD Resp normal respiratory effort and clear to auscultation bilaterally Cardio regular rate, regular rhythm and no murmurs GI normal to inspection, nondistended, normoactive bowel sounds Palpation: soft and tender LUQ and RUQ; Negative for guarding or rebound tenderness present Extremity normal to inspection General Extremety ED: Negative for edema or tenderness General Extremity: Negative for edema Neuro oriented x3, CN's II-XII intact bilaterally and no sensory deficits noted Sensorium / Orientation: alert Motor Exam: strength 5/5 throughout Psych mental status grossly normal Skin no rashes or lesions noted MDM MDM MDM Narrative Medical decision making narrative: Differential diagnosis includes aspiration pneumonia, bowel obstruction, and gastroenteritis. Will obtain acute abdominal x-rays to assess for bowel obstruction, ileus, perforation, and aspiration. Mother was hoping to not have any lab work drawn at this time. We will wait until the x-ray results are reviewed. If there is a bowel obstruction, or perforation, or severe pneumonia, we will obtain lab work at that time. Radiography Diagnostic Testing: Clinical Impression(s) from Imaging Studies Acute Abdomen Series 10/06/22 16:46 IMPRESSION: Negative chest and abdominal series. Electronically Signed: Sharon Giordano MD at 17:08 EST , X-rays were reviewed independently by myself. There are 3 views. There is no evidence of perforation or bowel obstruction. There is no acute cardiopulmonary process. Radiologist also reviewed the x-rays and agrees. Treatment and Re-Evaluation Narrative: Father and patient were advised of the findings. Father was instructed to continue tube feedings as previously instructed. Father was instructed to follow-up with the patient's primary care physician in 5 to 7 days. Father understood and was agreeable with the plan. All questions were answered. Discharge Plan Triage Chief Complaint: Nausea/Vomiting Other Complaint: Wound Check ED Provider: Adair Guevara Dx/Rx/DC Orders Clinical Impression: Nausea and vomiting, ALS (amyotrophic lateral sclerosis) Instructions: ED Vomiting (Adult) Prescriptions: No Action acetaminophen 500 mg/15 mL liquid 1,000 mg PO Q6H PRN esomeprazole magnesium [Nexium Packet] [address] for susp in packet 40 mg PO DAILY Qty: 60 2RF Lortab Elixir 10-300 mg/15 mL solution 7.5 - 15 ml PO Q6H PRN (Reason: pain) 3 Days Qty: 45 0RF Primary Care Provider: Jesusita Akers Referrals: Jesusita Akers DO [Primary Care Provider] - 3-5 Days Disposition Disposition: Home, Self Care
[2022-10-06 16:35] VITALS: BP 126/99; PULSE 87; O2SAT 98
--- NOTE | 2022-10-06 16:46 | RAD_ITS ---
INDICATION: Nausea and vomiting EXAMINATION/TECHNIQUE: X-RAY - XR Abdomen Series W/ Chest 1 View COMPARISON: Chest x-ray 09/02/2022. FINDINGS: --Chest: LINES/DEVICES: None. LUNGS: No consolidation, edema or effusion. No pneumothorax. MEDIASTINUM AND CARDIOVASCULAR STRUCTURES: Cardiac silhouette not enlarged. Central airways and mediastinal contour are unremarkable. BONES AND SOFT TISSUES: No acute findings. --Abdomen: BOWEL GAS PATTERN: Non-obstructive. No bowel or stomach distention. FREE AIR: None visualized. ORGANOMEGALY: Not seen. CALCIFICATIONS: No abnormal calcifications observed. BONES AND SOFT TISSUES: PEG tube is projected over the left midabdomen and kidney. Soft tissues are otherwise unremarkable. RAD/Acute Abdomen Inc Chest IMPRESSION: Negative chest and abdominal series. Electronically Signed: Sharon Giordano MD at 17:08 EST Reading Location ID and State: [id number] / Tel , Service support ,
[2022-10-06 17:25] VITALS: BP 122/74; PULSE 67; RESP 17; O2SAT 99
== END 2022-10-06 17:26 | disposition home or self-care (01) ==
PROVIDERS: Emergency Provider Emergency Medicine; PCP Family Medicine; Visit Provider Emergency Medicine
DX: R11.2 Nausea with vomiting, unspecified (principal); G12.21 Amyotrophic lateral sclerosis; R10.9 Unspecified abdominal pain
CPT/HCPCS: 74022; 99282

== ENCOUNTER → 2022-10-18 | Outpatient (CLI) | payer MEDICAID, SELFPAY ==
--- NOTE | 2022-10-18 17:20 | MRI_ITS ---
INDICATION: Dysphagia; suspected ALS EXAMINATION: MRI - MR Brain WO/W Contrast TECHNIQUE: Multiplanar and multisequence MR images of the brain were obtained without and with gadolinium. IV Contrast Dosage and Agent: None. COMPARISON: None. FINDINGS: BRAIN AND EXTRA-AXIAL SPACES: No intracranial mass, mass effect, or midline shift. No enhancing lesion. No hemorrhage, territorial infarct or acute ischemia. White matter is normal. Ventricles are normal in size. Basal cisterns are unremarkable. SELLA: Pituitary gland is normal in height. AUDITORY SYSTEM: Unremarkable. BONES/JOINTS: Unremarkable. SINUSES: Unremarkable as visualized. Clear. MASTOID AIR CELLS: Unremarkable as visualized. Clear. ORBITS: Unremarkable as visualized. VASCULATURE: Normal flow voids in the major intracranial circulation. MRI/Brain W/WO Contrast IMPRESSION: Negative MRI Brain. Electronically Signed: Sharon Giordano MD at 20:49 EST Reading Location ID and State: [id number] / Tel , Service support ,
== END | disposition home or self-care (01) ==
LOC: MRI 17:06
PROVIDERS: PCP Family Medicine; Referring Provider Psychiatry & Neurology Neurology; Visit Provider Psychiatry & Neurology Neurology
DX: R13.10 Dysphagia, unspecified (principal); G12.21 Amyotrophic lateral sclerosis; F81.9 Developmental disorder of scholastic skills, unspecified
CPT/HCPCS: 70553; A9575

== ENCOUNTER → 2022-10-22 | Outpatient (CLI) | payer MEDICAID, SELFPAY ==
--- NOTE | 2022-10-22 17:25 | MRI_ITS ---
INDICATION: Motor neuron disease EXAMINATION: MRI - MR Spine Cervical WO/W Contrast TECHNIQUE: Multiplanar and multisequence MR images of the cervical spine were performed, both with and without contrast.. IV Contrast Dosage and Agent: None. COMPARISON: 10 mL Clariscan. LIMITATIONS: Motion artifact. FINDINGS: VERTEBRAE: Normal vertebral bodies and posterior elements. No compression fracture. No facet dislocation. The odontoid is intact. VERTEBRAL ALIGNMENT: Normal, including the craniocervical junction and cervicothoracic junction. No spondylolisthesis. There is preservation of the normal cervical lordosis. CERVICAL SPINAL CORD: Unremarkable in signal and morphology. No intrinsic signal abnormalities or abnormal enhancement within the cervical cord. There is no evidence for cord edema or syrinx. DISCS: Cervical disc spaces are preserved. There is slight disc degeneration/dehydration at the C3/4 and C5/6 levels remaining cervical and upper thoracic disc show normal hydration. No disc protrusion or disc extrusion identified. There is no thecal sac stenosis or neural foraminal encroachment. NECK SOFT TISSUES: No prevertebral soft tissue swelling. No edema is noted about the cervical facet joints. OTHER: The clivus shows normal fatty marrow signal intensity. The cerebellar tonsils are normally positioned. The vertebral arteries show normal signal flow void. MRI/Spine Cervical W/WO Contrast IMPRESSION: Negative. No acute abnormality. Electronically Signed: Patric Neff MD at 23:04 EST ,
== END | disposition home or self-care (01) ==
PROVIDERS: PCP Family Medicine; Referring Provider Psychiatry & Neurology Neurology; Visit Provider Psychiatry & Neurology Neurology
DX: G12.21 Amyotrophic lateral sclerosis (principal)
CPT/HCPCS: 72156; A9575

== ENCOUNTER → 2022-11-01 | Outpatient (CLI) | payer MEDICAID, SELFPAY ==
--- NOTE | 2022-11-01 14:43 | NEURO ---
NCS and/or EMG Patient Report Ordering Doctor: Ruiz Moore DATE OF SERVICE: 11/01/22 Indication: Patient is non-verbal and his father aids in providing collateral information. Progressive dysphagia and weight loss. Familial history of amyotrophic lateral sclerosis. Evaluate for motor neuron disease. Findings: Nerve conduction studies were performed in the right upper and lower extremity. The right median motor study recording the abductor pollicis brevis showed a borderline amplitude, slightly prolonged distal latency and borderline conduction velocity. No conduction block or temporal dispersion was present between the wrist and antecubital fossa. The right ulnar motor study recording the abductor digiti minimi showed a normal amplitude, normal distal latency and normal forearm conduction velocity. No conduction block or temporal dispersion was present between the wrist and below-elbow sites. No conduction block or focal slowing was present across the elbow. The right median sensory response recording digit two showed a normal amplitude, latency and conduction velocity. The right ulnar sensory response recording digit five showed a normal amplitude, latency and conduction velocity. The right radial sensory response recording over the extensor snuff box showed a normal amplitude, latency and conduction velocity. The right peroneal motor study recording the extensor digitorum brevis showed a normal amplitude, normal distal latency and normal conduction velocity in the leg. No conduction block or temporal dispersion was present between the ankle and below fibular neck sites. No conduction block or focal slowing was present across the fibular neck. The right tibial motor study recording the abductor hallucis brevis showed a normal amplitude, normal distal latency and normal conduction velocity. No conduction block or temporal dispersion was present between the ankle and popliteal fossa. The right sural sensory response showed a normal amplitude and conduction velocity. The right superficial peroneal sensory response showed a normal amplitude and conduction velocity. Needle EMG of the right upper extremity was performed, but only three muscles were sampled prior to the patient and his father asked to terminate the examination. Active denervation was present in all sampled muscles (deltoid, triceps, biceps). In all sampled muscles, motor unites were large and polyphasic with reduced recruitment. Needle EMG of the remaining extremities, thoracic paraspinal, and craniofacial muscles was not performed as the patient his father declined further testing due to discomfort with the needle placement. Impression: This is an abnormal, but limited study (see above). There is electrophysiologic evidence consistent with an active and chronic right polyradiculopathy (C5, C6, C7 myotomes). Please note, these finding could be consistent with a diffuse disorder of the anterior horn cells and/or motor axons. A more extensive needle EMG would be needed to help differentiate the two, but was deferred by the patient. Clinical correlation is therefore needed for the correct interpretation of this abnormal findings. In addition, there was an incidental finding of a mild median neuropathy across the right wrist. Les Manning D.O. Multi Select Codes Neurology Neurology Interp Codes: 01794-57 [facility] [place] (interp) and 92339-21 [facility] cnd test 11-12 studies (interp)
== END | disposition home or self-care (01) ==
LOC: PSN 11:59
PROVIDERS: PCP Family Medicine; Visit Provider Psychiatry & Neurology Neurology
DX: G12.21 Amyotrophic lateral sclerosis (principal); R13.10 Dysphagia, unspecified
CPT/HCPCS: 95885; 95912

== ENCOUNTER 2022-11-25 12:37 | Outpatient (RCR) | payer MEDICAID, SELFPAY | END 2022-12-10 23:59 | LOC: NS 12:37 | PROVIDERS: PCP Family Medicine; Referring Provider Psychiatry & Neurology Neurology; Visit Provider Psychiatry & Neurology Neurology | DX: Z71.3 Dietary counseling and surveillance (principal); G12.21 Amyotrophic lateral sclerosis; E46 Unspecified protein-calorie malnutrition; R13.10 Dysphagia, unspecified; Z68.1 Body mass index [BMI] 19.9 or less, adult; Z93.1 Gastrostomy status | CPT/HCPCS: 97802; 97803 ==

== ENCOUNTER 2022-12-22 11:30 | Outpatient (RCR) | payer MEDICAID, SELFPAY ==
--- NOTE | 2023-01-07 10:55 | HP.SP.DC ---
ST Discharge Summary - Discharged: Discharge: Mata Portillo on 01/01/23. His chart will be discharged from speech therapy at [facility]. Thank you for allowing me to participate in the care of this patient.
== END 2022-12-22 19:00 | disposition home or self-care (01) ==
LOC: SP 11:30
PROVIDERS: PCP Pediatrics; Referring Provider Nurse Practitioner Family; Visit Provider Nurse Practitioner Family
DX: R13.10 Dysphagia, unspecified (principal); R47.9 Unspecified speech disturbances; R63.4 Abnormal weight loss
CPT/HCPCS: 92507; 92526; 92610